=== PATIENT | female | born 1970 | race Caucasian/White ===

== ENCOUNTER 2020-06-17 14:13 | Outpatient (REF) | payer MEDICAID, SELFPAY ==
--- NOTE | ~2020-06-17 | MM_ITS ---
EXAMINATION: MM SCREENING DIGITAL BREAST TOMOSYNTHESIS, BILATERAL CLINICAL INFORMATION: Screening. Asymptomatic. The lifetime risk of breast cancer based on the Tyrer-Cuzick Model is 6%. COMPARISON: Mammography: 06/12/2019, 06/06/2018, 07/31/2016, 07/23/2016 TECHNIQUE: Digital breast tomosynthesis is performed in both the craniocaudal and mediolateral oblique views along with computer-aided detection (CAD). Synthesized 2D images are generated from the tomosynthesis. Additional left CC view is provided. FINDINGS: There are scattered areas of fibroglandular density (ACR BI-RADS breast composition Category b). There are no significant masses, abnormal calcifications, or other abnormalities. Parenchymal pattern is similar to prior exams. There is no developing density. The axilla and skin contours are unremarkable. MM/MM tomosynthesis screening BI IMPRESSION: No mammographic evidence of malignancy. ASSESSMENT: BI-RADS 1: Negative RECOMMENDATION: Routine annual mammography screening. This patient's information was entered into a reminder system with a target due date for their next mammogram.
== END 2020-06-17 14:14 | disposition home or self-care (01) ==
LOC: HO.MAMMO 14:13
PROVIDERS: PCP Internal Medicine; Visit Provider Internal Medicine
DX: Z12.31 Encounter for screening mammogram for malignant neoplasm of breast (principal)
CPT/HCPCS: 77063; 77067

== ENCOUNTER 2020-11-18 15:52 | Emergency (ER) | payer MEDICAID, SELFPAY ==
--- NOTE | ~2020-11-18 | US_ITS ---
EXAMINATION:US pelvic and transvaginal CLINICAL INFORMATION: Reason for Exam Heavy vaginal bleeding. Suprapubic/bilateral lower abd pain COMPARISON: No priors available. LMP: Lower abdominal pain FINDINGS: UTERUS: The uterus is anteverted. Size: 10 x 4.2 x 6.7 cm. Uterine mass: There is no uterine mass. Cervix: There are nabothian cysts otherwise Grossly unremarkable. Endometrium: No ultrasound evidence of endometrial lesion. endometrial thickness measures 1.1 cm ADNEXA: Normal Right ovary: Normal in size. Left ovary: Normal in size. Doppler exam: Normal Doppler flow identified in both ovaries. FREE FLUID: Trace amount of free fluid. OTHER FINDINGS: None US/US pelvic and transvaginal IMPRESSION: No ultrasound explanation for patient's symptoms.
[2020-11-18 16:22] VITALS: BP 140/51; PULSE 76; RESP 16; TEMP 36.4; O2SAT 99; BMI 39.4
[2020-11-18 18:00] VITALS: BP 108/61; PULSE 74; RESP 16; O2SAT 100
[2020-11-18 18:11] LABS: MANUAL DIFF FLAG NO
[2020-11-18 18:13] LABS: Basophils Absolute Auto 0.1 X10*3/uL (0.0-0.2); Basophils Percent Auto 0.7 % (0-2); Eosinophils Absolute Auto 0.2 X10*3/uL (0.0-0.4); Eosinophils Percent Auto 1.8 % (0-4); Hematocrit 36.1 % (37-47); Hemoglobin 11.7 g/dl (12.0-16.0); Imm Gran Abs Auto 0.05 X10*3/uL (0.00-0.03); Imm Gran Pct Auto 0.5 % (0.0-0.4); Lymphocytes Absolute Auto 3.4 X10*3/uL (1.2-4.9); Lymphocytes Percent Auto 37.2 % (20-40); Mean Corpuscular HGB Conc 32.4 g/dl (31.0-35.0); Mean Corpuscular Volume 95.5 fL (80-98); Monocytes Absolute Auto 0.6 X10*3/uL (0.1-1.2); Monocytes Percent Auto 6.5 % (2-11); Neutrophils Absolute Auto 4.9 X10*3/uL (2.0-8.3); Neutrophils Percent Auto 53.3 % (45-73); Platelet Count 277 X10*3/uL (160-400); Red Blood Count 3.78 X10*6/uL (4.20-5.50); Red Cell Distribution Width 13.9 % (11.0-16.0); White Blood Count 9.1 X10*3/uL (4.8-10.8)
[2020-11-18 18:20] LABS: Prothrombin Time 11.8 SEC (9.9-13.0)
[2020-11-18 18:23] LABS: Partial Thromboplastin Time 36.3 SEC (24.1-38.0)
--- NOTE | 2020-11-18 18:42 | ED.GENADULT ---
HPI - General Adult General Chief complaint: Vaginal Bleeding Stated complaint: Vaginal bleeding Time Seen by Provider: 11/18/20 17:49 Source: patient Mode of arrival: ambulatory History of Present Illness HPI narrative: 50-year-old female with a past medical history of anemia presenting to the ED complaining of lower/suprapubic abdominal pain and heavy vaginal bleeding x2 days. Reports bleeding is dark red with clots soaking multiple pads. Admits to similar symptoms in the past, had daily menstrual bleeding for 2 months ending in September. Denies taking anticoagulation. Denies fever, chills, CP/SOB, lightheadedness/dizziness, dysuria, vaginal discharge Related Data Allergies Allergy/AdvReac Type Severity Reaction Status Date / Time No Known Allergies Allergy Verified 11/18/20 16:30 [No Known Allergies*] Review of Systems Review of Systems: Constitutional: No Fever, No Chills, No Fatigue, No Malaise Cardiovascular: No Chest Pain, No SOB, No Edema, No Palpitations Respiratory: No Cough, No Dyspnea Gastrointestinal: No Nausea, No Vomiting, No Diarrhea, No Abdominal pain, No Hematochezia, No Melena Genitourinary: +vaginal bleeding, No Dysuria, No Hematuria, No vaginal discharge Musculoskeletal: No joint pain, No Myalgias, No Joint Swelling Skin: No Skin Lesions, No rash Neuro: No Weakness, No Numbness, No Paresthesias, No Dizziness/lightheadedness Yes all other systems are reviewed and are negative [facility] Past Medical History Attestation statement: The following information was validated with the patient. Medical History (Updated 11/18/20 @ 22:30 by SAE Drew) Anemia Social History Social History Advance Directives: Yes Advance Directives Information Provided: Yes Advance Directives on File: No Patient : No Physical Exam Vital Signs: Vital Signs: Last Vital Signs Temp 97.5 F 11/18/20 16:22 Pulse 74 11/18/20 20:00 Resp 16 11/18/20 20:00 BP 118/72 11/18/20 20:00 Pulse Ox 100 11/18/20 20:00 Body Mass Index 39.4 Const: General: cooperative and no acute distress Orientation/consciousness: patient oriented x3 Limitations: no limitations HENMT: Head: Yes normal to inspection Ears: hearing grossly normal bilaterally General nose exam: Normal external nose present Face and sinus: Yes normal facial exam Eyes: General: appearance normal, both eyes and all related structures EOM: EOMs intact bilaterally Neck: Neck: Yes normal visual inspection and Yes no meningeal signs Resp: Effort & Inspection: normal respiratory effort Auscultation: clear to auscultation bilaterally Cardio: Rate: regular rate Heart sounds: S1 normal heart sound present and S2 normal heart sound present GI: Inspection: Yes normal to inspection Palpation (GI): Soft to palpation, Tenderness to palpation present (GI) (Suprapubic/lower abdominal), no guarding and not rigid : General: Yes no CVA tenderness Speculum Exam - Vagina: vaginal bleeding (via the Os with clots) Speculum Exam - Cervix: nontender Bimanual exam- vagina & uterus: No Cervical tenderness present Bimanual Exam- Adnexa, other: no masses and tender on the right OB/external & speculum: vaginal bleeding (via the Os with clots); No vaginal discharge Back/Spine/Pelvis: Back: no CVA tenderness Skin: Rashes: no rashes Wounds: no wounds Neuro: General: patient oriented x3, tone normal, moves all extremities and no meningeal signs Gait exam (Neuro): Normal gait present Extrem: General: Yes normal to inspection Course Course Course Narrative: -no leukocytosis H&H 11.7/36 slightly lower than recent priors but has been lower in the past, coags WNL, labs otherwise unremarkable US pelvic and transvaginal IMPRESSION: No ultrasound explanation for patient's symptoms. -1028--repeat H&H stable, results discussed with patient including worrisome signs and symptoms and strict return precautions, patient recommended follow-up OBGYN/call on Saturday, she verbalized understanding feel safe for discharge home Medical Decision Making MDM Narrative Medical decision making narrative: 50-year-old female with a past medical history of anemia presenting to the ED complaining of lower/suprapubic abdominal pain and heavy vaginal bleeding x2 days. On exam VSS, NAD/appearing, abdomen soft with lower/suprapubic TTP. On pelvic exam moderate amount of vaginal bleeding noted with clots via arts, cleared with Q-tips, right adnexal tenderness, no CMT. Concern for DUB vs anemia vs ovarian cyst. Lower concern for torsion. Lower concern for diverticulitis/appendicitis or UTI/pyelo Plan: Labs, UA, pelvic ultrasound Lab Data Result diagrams: 11/18/20 21:49 11/18/20 18:05 Labs: Lab Results 11/18/20 11/18/20 11/18/20 Range/Units 18:05 18:05 18:06 WBC 9.1 (4.8-10.8) X10*3/uL RBC 3.78 L (4.20-5.50) X10*6/uL Hgb 11.7 L (12.0-16.0) g/dl Hct 36.1 L (37-47) % MCV 95.5 (80-98) fL MCH 31.0 (27.0-33.0) pg MCHC 32.4 (31.0-35.0) g/dl RDW 13.9 (11.0-16.0) % Plt Count 277 (160-400) X10*3/uL MPV 10.0 (9.4-12.3) fL Immature Gran % (Auto) 0.5 H (0.0-0.4) % Neut % (Auto) 53.3 (45-73) % Lymph % (Auto) 37.2 (20-40) % Kimball % (Auto) 6.5 (2-11) % Eos % (Auto) 1.8 (0-4) % Baso % (Auto) 0.7 (0-2) % Lymph # (Auto) 3.4 (1.2-4.9) X10*3/uL Kimball # (Auto) 0.6 (0.1-1.2) X10*3/uL Eos # (Auto) 0.2 (0.0-0.4) X10*3/uL Baso # (Auto) 0.1 (0.0-0.2) X10*3/uL Abs Immat Gran (auto) 0.05 H (0.00-0.03) X10*3/uL Absolute Neuts (auto) 4.9 (2.0-8.3) X10*3/uL Absolute Nucleated RBC 0.000 (0.0-0.012) X10*3/uL Nucleated RBC % (auto) 0.0 (0.0-0.2) /100WBC PT 11.8 (9.9-13.0) SEC INR 1.0 (0.9-1.1) APTT 36.3 (24.1-38.0) SEC Sodium 142 (135-145) mmol/L Potassium 3.9 (3.3-5.1) mmol/L Chloride 110 H (96-108) mmol/L Carbon Dioxide 23 (22-29) mmol/L Anion Gap 13 (12-20) BUN 14 (9-16) mg/dL Creatinine 1.02 (0.5-1.4) mg/dL Estim Creat Clear Calc 77.6 Estimated GFR 57 Random Glucose 89 (60-115) mg/dL Calcium 8.7 (8.4-10.2) mg/dL Magnesium 2.0 (1.6-2.6) mg/dL Total Bilirubin 0.2 (0.0-1.0) mg/dL Direct Bilirubin < 0.2 (0.0-0.5) mg/dL AST 14 (5-31) U/L ALT 12 (0-31) U/L Alkaline Phosphatase 85 (39-117) U/L Total Protein 7.0 (6.5-8.0) g/dL Albumin 3.8 (3.5-5.0) g/dL Lipase 51 (8-78) U/L 11/18/20 Range/Units 21:49 WBC 10.6 (4.8-10.8) X10*3/uL RBC 3.91 L (4.20-5.50) X10*6/uL Hgb 12.1 (12.0-16.0) g/dl Hct 37.3 (37-47) % MCV 95.4 (80-98) fL MCH 30.9 (27.0-33.0) pg MCHC 32.4 (31.0-35.0) g/dl RDW 13.7 (11.0-16.0) % Plt Count 294 (160-400) X10*3/uL MPV 10.1 (9.4-12.3) fL Immature Gran % (Auto) 0.6 H (0.0-0.4) % Neut % (Auto) 48.2 (45-73) % Lymph % (Auto) 43.2 H (20-40) % Kimball % (Auto) 5.6 (2-11) % Eos % (Auto) 1.6 (0-4) % Baso % (Auto) 0.8 (0-2) % Lymph # (Auto) 4.6 (1.2-4.9) X10*3/uL Kimball # (Auto) 0.6 (0.1-1.2) X10*3/uL Eos # (Auto) 0.2 (0.0-0.4) X10*3/uL Baso # (Auto) 0.1 (0.0-0.2) X10*3/uL Abs Immat Gran (auto) 0.06 H (0.00-0.03) X10*3/uL Absolute Neuts (auto) 5.1 (2.0-8.3) X10*3/uL Absolute Nucleated RBC 0.000 (0.0-0.012) X10*3/uL Nucleated RBC % (auto) 0.0 (0.0-0.2) /100WBC PT (9.9-13.0) SEC INR (0.9-1.1) APTT (24.1-38.0) SEC Sodium (135-145) mmol/L Potassium (3.3-5.1) mmol/L Chloride (96-108) mmol/L Carbon Dioxide (22-29) mmol/L Anion Gap (12-20) BUN (9-16) mg/dL Creatinine (0.5-1.4) mg/dL Estim Creat Clear Calc Estimated GFR Random Glucose (60-115) mg/dL Calcium (8.4-10.2) mg/dL Magnesium (1.6-2.6) mg/dL Total Bilirubin (0.0-1.0) mg/dL Direct Bilirubin (0.0-0.5) mg/dL AST (5-31) U/L ALT (0-31) U/L Alkaline Phosphatase (39-117) U/L Total Protein (6.5-8.0) g/dL Albumin (3.5-5.0) g/dL Lipase (8-78) U/L Discharge Plan Discharge Clinical Impression: Vaginal bleeding Patient Disposition: Home, Self-Care Instructions: Dysfunctional Uterine Bleeding (ED) Additional Instructions: Your blood work was reassuring Your ultrasound was unremarkable You need to follow-up with an OBGYN If your symptoms persist or worsen, her bleeding becomes more severe, he developed lightheadedness or dizziness, chest pain, shortness breath, vaginal discharge, or constant worsening abdominal plain return to the ED immediately Tu an?lisis de eunice fue reconfortante Tu ecograf?a no tuvo nada especial Necesita hacer un seguimiento con un ginecoobstetra Si dalton s?ntomas persisten o empeoran, subramanian sangrado se vuelve m?s ruba, ?l desarroll? aturdimiento o mareos, dolor en el pecho, dificultad para respirar, flujo vaginal o dolor abdominal julio que empeora regrese al servicio de urgencias de inmediato. Referrals: Douglas Ellison MD [Physician] - 3 days Print Language: Montserratian
[2020-11-18 18:46] LABS: Alanine Aminotransferase 12 U/L (0-31); Albumin Level 3.8 g/dL (3.5-5.0); Alkaline Phosphatase 85 U/L (39-117); Anion Gap 13 (12-20); Aspartate Amino Transferase 14 U/L (5-31); Bilirubin Direct < 0.2 mg/dL (0.0-0.5); Bilirubin Total 0.2 mg/dL (0.0-1.0); Blood Urea Nitrogen 14 mg/dL (9-16); Calcium 8.7 mg/dL (8.4-10.2); Carbon Dioxide 23 mmol/L (22-29); Chloride 110 mmol/L (96-108); Creatinine Clr Calc Pharmacy 77.6; Estimated Glomerular Filt Rate 57; Glucose Random 89 mg/dL (60-115); Potassium 3.9 mmol/L (3.3-5.1); Sodium 142 mmol/L (135-145)
[2020-11-18] MEDS: 0.9 % Sodium Chloride 1,000 ML 999 ML IVCONT (18:53)
[2020-11-18 18:55] LABS: Lipase 51 U/L (8-78)
--- NOTE | 2020-11-18 19:48 | PC.NURSE ---
THIS PCT SET UP AND ASSIST SAE GOMEZ WITH PATIENT PELVIC EXAM .
[2020-11-18 20:00] VITALS: BP 118/72; PULSE 74; RESP 16; O2SAT 100
[2020-11-18] MEDS: Acetaminophen 325 MG TABLET 650 MG PO (20:20)
[2020-11-18 21:53] LABS: MANUAL DIFF FLAG NO
[2020-11-18 21:54] LABS: Basophils Absolute Auto 0.1 X10*3/uL (0.0-0.2); Basophils Percent Auto 0.8 % (0-2); Eosinophils Absolute Auto 0.2 X10*3/uL (0.0-0.4); Eosinophils Percent Auto 1.6 % (0-4); Hematocrit 37.3 % (37-47); Hemoglobin 12.1 g/dl (12.0-16.0); Imm Gran Abs Auto 0.06 X10*3/uL (0.00-0.03); Imm Gran Pct Auto 0.6 % (0.0-0.4); Lymphocytes Absolute Auto 4.6 X10*3/uL (1.2-4.9); Lymphocytes Percent Auto 43.2 % (20-40); Mean Corpuscular HGB Conc 32.4 g/dl (31.0-35.0); Mean Corpuscular Hemoglobin 30.9 pg (27.0-33.0); Mean Corpuscular Volume 95.4 fL (80-98); Mean Platelet Volume 10.1 fL (9.4-12.3); Monocytes Absolute Auto 0.6 X10*3/uL (0.1-1.2); Monocytes Percent Auto 5.6 % (2-11); Neutrophils Absolute Auto 5.1 X10*3/uL (2.0-8.3); Neutrophils Percent Auto 48.2 % (45-73); Platelet Count 294 X10*3/uL (160-400); Red Blood Count 3.91 X10*6/uL (4.20-5.50); Red Cell Distribution Width 13.7 % (11.0-16.0); White Blood Count 10.6 X10*3/uL (4.8-10.8)
== END 2020-11-18 22:58 | disposition home or self-care (01) ==
PROVIDERS: Physician Assistant; Emergency Provider Internal Medicine; PCP Internal Medicine
DX: N93.9 Abnormal uterine and vaginal bleeding, unspecified (principal)
CPT/HCPCS: 36415; 76830; 76856; 80048; 80076; 83690; 83735; 85025; 85610; 85730; 99284

== ENCOUNTER 2020-12-01 15:06 | Outpatient (REF) | payer MEDICAID, SELFPAY ==
[2020-12-02 11:47] LABS: CT PCR NOT DETECTED (Not Detect.); NG PCR NOT DETECTED (Not Detect.)
[2020-12-06 21:15] LABS: HPV mRNA E6/E7 rflx Not Detected (Not Detected)
== END 2020-12-01 15:07 | disposition home or self-care (01) ==
LOC: HO.LAB 15:06
PROVIDERS: PCP Internal Medicine; Visit Provider Obstetrics & Gynecology
DX: Z01.411 Encounter for gynecological examination (general) (routine) with abnormal findings (principal); Z11.51 Encounter for screening for human papillomavirus (HPV); Z11.3 Encounter for screening for infections with a predominantly sexual mode of transmission; N92.0 Excessive and frequent menstruation with regular cycle
CPT/HCPCS: 87491; 87591; 87624; 88142; 99202

== ENCOUNTER 2020-12-19 14:36 | Outpatient (REF) | payer MEDICAID, SELFPAY | END 2020-12-19 14:37 | disposition home or self-care (01) | LOC: HO.LAB 14:36 | PROVIDERS: Visit Provider Obstetrics & Gynecology | DX: R87.610 Atypical squamous cells of undetermined significance on cytologic smear of cervix (ASC-US) (principal); N92.0 Excessive and frequent menstruation with regular cycle | CPT/HCPCS: 57454; 88305; 99212 ==

== ENCOUNTER 2020-12-30 10:48 | Day surgery (SDC) | payer MEDICAID, SELFPAY ==
--- NOTE | 2020-12-29 08:50 | HO.ANESPROP2 ---
Documented by User: Ella Spears NP 12/29/20 08:51 HPI - Anesthesia Eval Consult details Narrative: 50yo F for D&C Hysteroscopy, Poss Polypectomy, Poss Myomectomy PMFSH Active Problems Active Problems: All Active Problems (Updated 12/19/20 @ 14:57 by Douglas Ellison MD) ASCUS of cervix with negative high risk HPV (Acute) Menorrhagia (Acute) Past Medical History Medical History Anemia Epilepsia Hypothyroid Well woman exam Surgical History Surgical History Hx of section Tubal ligation status Social History Social History Alcohol intake: never Patient Tobacco Use Status: Never used Tobacco Second Hand Smoke Exposure: No Use of substances other than those prescribed or required for medical reasons: No Are you DNR?: No Advance Directives: No Advance Directives Information Provided: Yes Advance Directives on File: No Meds Allergies Allergy/AdvReac Type Severity Reaction Status Date / Time No Known Allergies Allergy Verified 12/01/20 15:20 [No Known Allergies*] Home Medications Medication Instructions Recorded Confirmed Last Taken Type ferrous sulfate 325 mg (65 mg 325 mg PO DAILY 12/01/20 Unknown History iron) tablet (Iron (ferrous sulfate)) levothyroxine 50 mcg capsule 50 mcg PO DAILY 12/01/20 Unknown History omeprazole magnesium 10 mg oral 20 mg PO DAILY 12/01/20 Unknown History suspension,delayed release (Prilosec) Exam Exam Date and Time: December 29, 2020 0850 Pertinent Lab Results Pertinent Lab Results: Laboratory Tests 11/18/20 11/18/20 18:05 21:49 WBC 10.6 Hgb 12.1 Hct 37.3 Plt Count 294 Sodium 142 Potassium 3.9 Chloride 110 H Carbon Dioxide 23 BUN 14 Creatinine 1.02 Assessment and Plan Assessment Anesthesia Assessment: Chart Reviewed Documented by User: Aliya Hudson MD 12/30/20 11:24 PMFSH Past Medical History Medical History (Reviewed 12/30/20 @ 11: by Aliya Hudson MD) Anemia Epilepsia Hypothyroid Well woman exam Family History Family history of problems with anesthesia: No Surgical History Surgical History (Reviewed 12/30/20 @ 11: by Aliya Hudson MD) Hx of section Tubal ligation status History of Problems with Anesthesia: No Social History Social History (Reviewed 12/30/20 @ 11: by Aliya Hudson MD) Alcohol intake: never Patient Tobacco Use Status: Never used Tobacco Second Hand Smoke Exposure: No Use of substances other than those prescribed or required for medical reasons: No Are you DNR?: No Advance Directives: No Advance Directives Information Provided: Yes Advance Directives on File: No Meds Allergies Allergy/AdvReac Type Severity Reaction Status Date / Time No Known Allergies Allergy Verified 12/01/20 15:20 [No Known Allergies*] Home Medications Medication Instructions Recorded Confirmed Last Taken Type ferrous sulfate 325 mg (65 mg 325 mg PO DAILY 12/01/20 Unknown History iron) tablet (Iron (ferrous sulfate)) levothyroxine 50 mcg capsule 50 mcg PO DAILY 12/01/20 Unknown History omeprazole magnesium 10 mg oral 20 mg PO DAILY 12/01/20 Unknown History suspension,delayed release (Prilosec) Exam Airway Mallampati Class: II TM Dist: >3cm Neck ROM: Full Assessment and Plan Assessment Anesthesia Assessment: Anesthesia Plan Discussed Final Anesthetic Review Family History of Problems with Anesthesia: No History of Problems with Anesthesia: No NPO: Yes ASA Class: III Final Preanesthetic Review: No Changes in Pt Med Stat, Meds/Allgs Chart Reviewed, Consent Obtained/Reviewed and Anes Risks/Benef Reviewed Patient Risk: Low Procedure Risk: Low Assessment/Block/Sedation in SS: Assess/Block/Sedation-SS Anesthetic Plan Anesthetic Plan: MAC: Disposition: Standard PACU
[2020-12-30 11:14] VITALS: BP 115/84; PULSE 87; RESP 16; TEMP 36.2; O2SAT 98; BMI 41.8
[2020-12-30 11:19] LABS: UPreg QC Valid YES; Urine Pregnancy NEGATIVE (NEGATIVE)
[2020-12-30] MEDS: Lactated Ringers 1,000 ML 100 ML IVCONT (11:22)
--- NOTE | 2020-12-30 11:24 | MHC.SHP ---
Pre-Procedural Eval Section A Date of Service: 12/30/20 The patient is an INPATIENT: No Changes since office visit: No Cold of Flu in the past 2 weeks, No New Medical Problems, No Changes in Medication and No Patient answered all questions The History & Physical has been completed within 30 days and I have reviewed it.: Yes Section B Chief Complaint: Menorrhagia Allergies: Allergies Allergy/AdvReac Type Severity Reaction Status Date / Time No Known Allergies Allergy Verified 12/01/20 15:20 [No Known Allergies*] Plan Diagnosis/Plan: Unchanged I have reviewed the history and physical and performed a pertinent physical examination on my patient. No changes have occurred unless specified.
--- NOTE | 2020-12-30 14:34 | PM.OP ---
Brief Operative Note Date of Service: 12/30/20 Pre-op diagnosis: Menorrhagia Post-op diagnosis: same Procedure: Hysteroscopy D&C Surgeon: Douglas Ellison MD Anesthesia: MAC Was an Associate Professor Of Economics used for this Procedure?: No Estimated blood loss (mL): 0 Pathology: other (Endometrial Scrapping) Condition: stable Disposition: PACU
--- NOTE | 2020-12-30 14:35 | W.PM.OPN ---
Operative Note Operative Note Date of Service: 12/30/20 Narrative: Preop Diagnosis: Menometrorrhagia Operation: Diagnostic Hysteroscopy, Dilataion & Curettage Post Op Diagnosis: normal endometrial and endocervical cavity no evidence of pathology QBL: Minimal Anesthesia: MAC Surgeon: Douglas Ellison MD [place] Consultant: None Complication: None Pathology: Endometrial Scrapings Procedure: The patient was put in the dorsal lithotomy position, scrubbed, and draped in the usual manner. A sterile speculum was inserted in the patient's vagina. The anterior lip of the cervix was grasped with a single tooth tenaculum. The cervix was dilated up to 5 mm, then the scope was inserted in the patient's uterus. Inspection revealed normal endocervical & endometrial cavity with no evidence of pathology. The scope was taken out of the uterine cavity , then sharp curetting was carried on with no complications. At the end of the procedure, all instruments were taken out of the patient uterine and vaginal cavity. The single tooth tenaculum was removed and homeostasis was assured using pressure. The patient tolerated the procedure well and was transferred to the PACU in a stable condition.
[2020-12-30 14:42] VITALS: BP 114/86; PULSE 92; RESP 16; TEMP 36.4; O2SAT 98
[2020-12-30 14:47] VITALS: BP 128/80; PULSE 83; RESP 16; O2SAT 97
[2020-12-30 14:52] VITALS: BP 115/65; PULSE 75; RESP 16; O2SAT 98
[2020-12-30 14:57] VITALS: BP 124/75; PULSE 80; RESP 16; TEMP 36.4; O2SAT 98
--- NOTE | 2020-12-30 15:31 | HO.POSTANES ---
Post Anesthesia Evaluation Post Anesthesia Evaluation Vital Signs: Vital Signs Temp Pulse Resp BP Pulse Ox 12/30/20 14:57 97.6 F 80 16 124/75 98 12/30/20 14:52 75 16 115/65 98 12/30/20 14:47 83 16 128/80 97 12/30/20 14:42 97.6 F 92 16 114/86 98 12/30/20 11:14 97.1 F 87 16 115/84 98 Anesthesia: Monitored Mental Status: Awake Pain Control: Satisfactory Nausea/Vomiting: None Hydration: Adequate Anesthesia-Related Issues: No Anes. Related Issues
== END 2020-12-30 15:30 | disposition home or self-care (01) ==
PROVIDERS: Visit Provider Obstetrics & Gynecology
PROC: 0UDB8ZZ Extraction of Endometrium, Via Natural or Artificial Opening Endoscopic (ICD-10-PCS; CPT 58558; principal; 2020-12-30 13:00)
DX: N92.1 Excessive and frequent menstruation with irregular cycle (principal); D64.9 Anemia, unspecified; G40.909 Epilepsy, unspecified, not intractable, without status epilepticus; E03.9 Hypothyroidism, unspecified; Z98.51 Tubal ligation status; Z79.899 Other long term (current) drug therapy
CPT/HCPCS: 58558; 81025; 88305; J1100; J2250; J2405; J3010

== ENCOUNTER 2021-02-02 16:26 | Outpatient (REF) | payer MEDICAID, SELFPAY ==
[2021-02-02 17:45] LABS: HCG Quantitative < 2 mIU/mL
[2021-02-04 18:21] LABS: Follicle Stimulating Hormone 40.1 mIU/mL; Lutenizing Hormone 35.3 mIU/mL
== END 2021-02-02 16:27 | disposition home or self-care (01) ==
LOC: HO.LAB 16:26
PROVIDERS: Visit Provider Obstetrics & Gynecology
DX: N92.0 Excessive and frequent menstruation with regular cycle (principal)
CPT/HCPCS: 36415; 83001; 83002; 84443; 84702

== ENCOUNTER → 2021-02-07 12:30 | Outpatient (BNVA) | payer MEDICAID, SELFPAY | PROVIDERS: Visit Provider Obstetrics & Gynecology | DX: N92.0 Excessive and frequent menstruation with regular cycle (principal) ==

== ENCOUNTER 2021-08-22 16:54 | Emergency (ER) | payer MEDICAID, SELFPAY ==
--- NOTE | ~2021-08-22 | XR_ITS ---
EXAMINATION: XR CHEST CLINICAL INFORMATION: Chest pain COMPARISON: Chest x-ray 10/25/2017 TECHNIQUE: Frontal view of the chest was obtained. 5:52 PM FINDINGS: Lungs are clear. No pulmonary vascular congestion. There is no pleural effusion. The heart size is normal. The cardiac and mediastinal contours are normal. There are calcifications of the thoracic aorta. There are multilevel degenerative changes of dorsal spine. XR/XR chest 1V IMPRESSION: Unremarkable examination.
--- NOTE | 2021-08-22 16:58 | ECG_ITS ---
Test Reason : CHEST PAIN Blood Pressure : / mmHG Vent. Rate : 107 BPM Atrial Rate : 107 BPM P-R Int : 122 ms QRS Dur : 086 ms QT Int : 362 ms P-R-T Axes : 046 016 011 degrees QTc Int : 483 ms Sinus tachycardia Nonspecific ST abnormality Abnormal ECG No previous ECGs available Referred By: Generic ED Physician Electronically Signed By:Reji Pereira
[2021-08-22 17:20] LABS: Basophils Absolute Auto 0.1 X10*3/uL (0.0-0.2); Basophils Percent Auto 0.8 % (0-2); Eosinophils Absolute Auto 0.2 X10*3/uL (0.0-0.4); Eosinophils Percent Auto 1.1 % (0-4); Hemoglobin 12.2 g/dl (12.0-16.0); Imm Gran Abs Auto 0.08 X10*3/uL (0.00-0.03); Imm Gran Pct Auto 0.6 % (0.0-0.4); Lymphocytes Percent Auto 46.7 % (20-40); MANUAL DIFF FLAG SCAN; Mean Corpuscular HGB Conc 32.1 g/dl (31.0-35.0); Mean Corpuscular Volume 96.4 fL (80.0-98.0); Monocytes Absolute Auto 0.8 X10*3/uL (0.1-1.2); Monocytes Percent Auto 6.1 % (2-11); Neutrophils Percent Auto 44.7 % (45-73); Platelet Count 360 X10*3/uL (160-400); Red Blood Count 3.94 X10*6/uL (4.20-5.50); Red Cell Distribution Width 13.4 % (11.0-16.0); SCAN SMEAR FLAG 1; White Blood Count 13.3 X10*3/uL (4.8-10.8)
[2021-08-22 17:21] VITALS: BP 121/84; PULSE 80; RESP 19; TEMP 36.3; O2SAT 98; BMI 44.2
[2021-08-22 17:27] LABS: Lymphocytes Absolute Auto 6.2 X10*3/uL (1.2-4.9)
[2021-08-22 17:31] LABS: Anion Gap 13 (12-20); Blood Urea Nitrogen 15 mg/dL (9-16); Calcium 9.3 mg/dL (8.4-10.2); Carbon Dioxide 24 mmol/L (22-29); Chloride 106 mmol/L (96-108); Creatinine Clr Calc Pharmacy 69.1; Estimated Glomerular Filt Rate 48; Glucose Random 124 mg/dL (60-115); Potassium 4.1 mmol/L (3.3-5.1); Sodium 139 mmol/L (135-145)
[2021-08-22 17:38] LABS: Troponin-I High Sensitivity < 3.5 ng/L (<3.5-17.0)
[2021-08-22 17:55] LABS: SLIDE REVIEW VERIFIED
[2021-08-22 22:24] VITALS: BP 135/77; PULSE 89; RESP 16; TEMP 36.4; O2SAT 98
[2021-08-23] MEDS: Meclizine HCl 25 MG TABLET 50 MG PO (01:09)
--- NOTE | 2021-08-23 01:11 | PC.NURSE ---
pt a&o, no sob or chest pain at this time. The provider into see patient and review discharge instructions.
--- NOTE | 2021-08-23 01:15 | ED_ITS ---
HPI - Dizziness General Chief Complaint: Chest Pain Stated Complaint: dizziness/chest pains/anxiety Time Seen by Provider: 08/23/21 00:46 Source: patient Mode of arrival: ambulatory Limitations: no limitations History of Present Illness HPI Narrative: Patient came here with sudden onset of vertigo feeling started afternoon with nausea and vomiting after vomiting she was feeling mid chest discomfort patient was so dizzy was unable to ambulate after waiting for some time patient is feeling much better now denies any ringing in the ear no headache no fever no chills Related Data Home Medications Medication Instructions Recorded Confirmed ferrous sulfate 325 mg (65 mg 325 mg PO DAILY 12/01/20 iron) tablet (Iron (ferrous sulfate)) levothyroxine 50 mcg capsule 50 mcg PO DAILY 12/01/20 omeprazole magnesium 10 mg oral 20 mg PO DAILY 12/01/20 suspension,delayed release (Prilosec) Previous Rx's Medication Instructions Recorded meclizine 25 mg tablet 25 mg PO QID PRN #20 tab 08/23/21 Allergies Allergy/AdvReac Type Severity Reaction Status Date / Time No Known Allergies Allergy Verified 08/22/21 17:30 [No Known Allergies*] Review of Systems Review of Systems: Yes all other systems are reviewed and are negative PMFSH Past Medical History Medical History Anemia Epilepsia Hypothyroid Well woman exam Surgical History Hx of section Tubal ligation status Social History Social History Alcohol intake: never Patient Tobacco Use Status: Never used Tobacco Second Hand Smoke Exposure: No Use of substances other than those prescribed or required for medical reasons: No Advance Directives: No Physical Exam Vital Signs: Vital Signs: Last Vital Signs Temp 97.6 F 08/22/21 22:24 Pulse 80 08/23/21 01:29 Resp 16 08/23/21 01:29 BP 135/81 08/23/21 01:29 Pulse Ox 100 08/23/21 01:29 BMI result Body Mass Index 44.2 Appearance: Alert. Oriented X3. No acute distress. Eyes: PERRLA, No Nystagmus ENT: Pharynx normal. Oral Mucosa moist Neck: Normal inspection. Neck supple. CVS: Normal heart rate and rhythm. Pulses normal. Respiratory: No respiratory distress. Equal air entry bilateral, no wheezing/rales/rhonchi Abdomen: Soft and nontender. Bowel sounds are present, no mass palpable, no CVA tenderness Skin: Skin warm and dry. Normal skin color. Normal skin turgor. Extremities: No lower extremity edema. No calf tenderness Neuro: Oriented X 3. No motor deficit. No sensory deficit.No cerebellar signs , cranial nerves II-XII intact MDM - Dizziness MDM Narrative Medical decision making narrative: Patient likely has benign positional vertigo after waiting for some time patient vertigo has improved patient complaining of vertigo feeling by either either s karri of the head movement at this time patient ambulatory with mild vertiginous feeling will give her meclizine discharge patient home Lab Data Attestation: I reviewed the patient's lab results. Result diagrams: 08/22/21 17:10 08/22/21 17:10 Labs: Lab Results 08/22/21 08/22/21 08/22/21 Range/Units 17:10 17:10 17:10 WBC 13.3 H (4.8-10.8) X10*3/uL RBC 3.94 L (4.20-5.50) X10*6/uL Hgb 12.2 (12.0-16.0) g/dl Hct 38.0 (37.0-47.0) % MCV 96.4 (80.0-98.0) fL MCH 31.0 (27.0-33.0) pg MCHC 32.1 (31.0-35.0) g/dl RDW 13.4 (11.0-16.0) % Plt Count 360 (160-400) X10*3/uL MPV 10.0 (9.4-12.3) fL Immature Gran % (Auto) 0.6 H (0.0-0.4) % Neut % (Auto) 44.7 L (45-73) % Lymph % (Auto) 46.7 H (20-40) % Churchill % (Auto) 6.1 (2-11) % Eos % (Auto) 1.1 (0-4) % Baso % (Auto) 0.8 (0-2) % Lymph # (Auto) 6.2 H (1.2-4.9) X10*3/uL Churchill # (Auto) 0.8 (0.1-1.2) X10*3/uL Eos # (Auto) 0.2 (0.0-0.4) X10*3/uL Baso # (Auto) 0.1 (0.0-0.2) X10*3/uL Abs Immat Gran (auto) 0.08 H (0.00-0.03) X10*3/uL Absolute Neuts (auto) 6.0 (2.0-8.3) x10*3/uL Absolute Nucleated RBC 0.000 (0.0-0.012) X10*3/uL Nucleated RBC % (auto) 0.0 (0.0-0.2) /100WBC Smear Tech's Comments VERIFIED Sodium 139 (135-145) mmol/L Potassium 4.1 (3.3-5.1) mmol/L Chloride 106 (96-108) mmol/L Carbon Dioxide 24 (22-29) mmol/L Anion Gap 13 (12-20) BUN 15 (9-16) mg/dL Creatinine 1.18 (0.5-1.4) mg/dL Estim Creat Clear Calc 69.1 Estimated GFR 48 Random Glucose 124 H (60-115) mg/dL Calcium 9.3 D (8.4-10.2) mg/dL Troponin I High Sens < 3.5 (<3.5-17.0) ng/L ECG Data Attestation: I personally reviewed and interpreted this ECG as follows: Interpretation: Sinus tachycardia heart rate 107 beats per minute normal intervals normal axis no acute STT wave changes Discharge Plan Discharge Clinical Impression: Benign paroxysmal positional vertigo Patient Disposition: Home, Self-Care Instructions: Benign Paroxysmal Positional Vertigo (ED) Additional Instructions: Rest as advised Take medication for dizziness as prescribed Follow with PCP if not better [place] se recomienda [place] la medicaci?n para los mareos seg?n lo prescrito Siga con PCP si no mejor Prescriptions: New meclizine 25 mg tablet 25 mg PO QID PRN (Reason: dizziness) Qty: 20 0RF No Action ferrous sulfate [Iron (ferrous sulfate)] 325 mg (65 mg iron) tablet 325 mg PO DAILY 0RF levothyroxine 50 mcg capsule 50 mcg PO DAILY 0RF Prilosec 10 mg susp,delayed release for recon 20 mg PO DAILY 0RF Stand Alone Forms: Work/School Release Interventions: ED Discharge Assessment Last Done: 08/23/21 01:32 Discharge Date/Time: 08/23/21 01:34 Print Language: Mauritian
[2021-08-23 01:29] VITALS: BP 135/81; PULSE 80; RESP 16; O2SAT 100
== END 2021-08-23 01:34 | disposition home or self-care (01) ==
PROVIDERS: Emergency Provider Internal Medicine
DX: H81.13 Benign paroxysmal vertigo, bilateral (principal); R07.89 Other chest pain; F41.1 Generalized anxiety disorder; F43.0 Acute stress reaction; Z79.899 Other long term (current) drug therapy
CPT/HCPCS: 36415; 71045; 80048; 84484; 85025; 93005; 99283; 99285

== ENCOUNTER → 2021-12-20 13:55 | Outpatient (BNVA) | payer MEDICAID, SELFPAY | PROVIDERS: Visit Provider Nurse Practitioner Family | DX: Z12.11 Encounter for screening for malignant neoplasm of colon (principal); K21.9 Gastro-esophageal reflux disease without esophagitis; Z79.899 Other long term (current) drug therapy | CPT/HCPCS: 99202; 99212 ==

== ENCOUNTER 2022-01-05 07:45 | Day surgery (SDC) | payer MEDICAID, SELFPAY ==
[2022-01-01 11:42] VITALS: BMI 43.2
--- NOTE | 2022-01-05 09:08 | MHC.SHP ---
Pre-Procedural Eval Section A Date of Service: 01/05/22 The patient is an INPATIENT: No Changes since office visit: Yes Patient answered all questions; No Cold of Flu in the past 2 weeks, No New Medical Problems and No Changes in Medication The History & Physical has been completed within 30 days and I have reviewed it.: Yes Section B Chief Complaint: screening Allergies: Allergies Allergy/AdvReac Type Severity Reaction Status Date / Time No Known Allergies Allergy Verified 01/05/22 08:51 [No Known Allergies*] Plan I have reviewed the history and physical and performed a pertinent physical examination on my patient. No changes have occurred unless specified.
[2022-01-05 09:13] VITALS: BP 123/83; PULSE 70; RESP 17; TEMP 35.9; O2SAT 99
[2022-01-05] MEDS: Lactated Ringers 1,000 ML 100 ML IVCONT (09:14)
--- NOTE | 2022-01-05 09:31 | HO.ANESPROP2 ---
HPI - Anesthesia Eval Consult details Narrative: 51 yo female patient for Colonoscopy PMFSH Active Problems Active Problems: All Active Problems (Updated 01/05/22 @ 08:48 by Meggan Pang, RN) Menorrhagia (Acute) ASCUS of cervix with negative high risk HPV (Acute) Perimenopause (Acute) Increased BMI 43.3 Denies PAU Past Medical History Medical History Anemia Epilepsia GERD (gastroesophageal reflux disease) Hypothyroid Well woman exam Family History Family history of problems with anesthesia: No Surgical History Surgical History History of dilatation and curettage Hx of section Tubal ligation status History of Problems with Anesthesia: No Social History Social History Alcohol intake: never Patient Tobacco Use Status: Never used Tobacco Second Hand Smoke Exposure: No Use of substances other than those prescribed or required for medical reasons: No Are you DNR?: No Advance Directives: No Advance Directives Information Provided: Yes Meds Allergies Allergy/AdvReac Type Severity Reaction Status Date / Time No Known Allergies Allergy Verified 01/05/22 08:51 [No Known Allergies*] Active Medications: Current Medications Lactated Ringer's (Lr) 1,000 mls @ 100 mls/hr IVCONT .Q10H JAMAL Last Admin: 01/05/22 09:14 Dose: 100 mls/hr Home Medications Medication Instructions Recorded Confirmed Last Taken Type ferrous sulfate 325 mg (65 mg 325 mg PO DAILY 12/01/20 01/05/22 Unknown History iron) tablet (Iron (ferrous sulfate)) levothyroxine 50 mcg capsule 50 mcg PO DAILY 12/01/20 01/05/22 Unknown History omeprazole magnesium 10 mg oral 20 mg PO DAILY 12/01/20 01/05/22 Unknown History suspension,delayed release (Prilosec) Exam Exam Date and Time: January 05, [id number] Height,Weight and Vital Signs: Height 5 ft 4 in Weight 114.305 kg Last Vital Signs Temp 96.7 F L 01/05/22 09:13 Pulse 70 01/05/22 09:13 Resp 17 01/05/22 09:13 BP 123/83 01/05/22 09:13 Pulse Ox 99 01/05/22 09:13 O2 Del Method 01/05/22 09:13 Airway Mallampati Class: II TM Dist: >3cm Neck ROM: Full Loose/Missing/Broken Teeth: No (Patient denies loose or broken teeth) Heart: RRR Lungs: CTAB Assessment and Plan Final Anesthetic Review Family History of Problems with Anesthesia: No History of Problems with Anesthesia: No NPO: Yes ASA Class: III Final Preanesthetic Review: No Changes in Pt Med Stat, Meds/Allgs Chart Reviewed, Consent Obtained/Reviewed and Anes Risks/Benef Reviewed Patient Risk: Intermediate Procedure Risk: Low Assessment/Block/Sedation in SS: Assess/Block/Sedation-SS Anesthetic Plan Anesthetic Plan: MAC: Disposition: Standard PACU
--- NOTE | 2022-01-05 09:45 | P.OP_ITS ---
Operative Note Operative Note Date of Service: 01/05/22 Narrative: Pre-op diagnosis: colon cancer screening (1st colonoscopy) Post-op diagnosis:?other ( colon polyp, diverticulosis, hemorrhoids) Procedure: COLONOSCOPY TILL CECUM WITH? SNARE POLYPECTOMY Consent: Indications for the procedure and potential complications of bleeding, perforation, reaction to medications and missed diagnosis were discussed with the patient and informed consent was obtained. Instrument: Olympus PCF H 190 L variable stiffness pediatric colonoscope Monitoring: Vital signs and clinical assessment, intermittent blood pressure monitoring, continuous EKG monitoring, Pulse oximetry and Carbon Dioxide monitoring were done throughout the procedure. Colon withdrawl time was 21 minutes. Procedure: The patient was placed in the left lateral decubitis position and pre-procedure medications were administered. After a digital rectal examination of the ano-rectum, the video colonoscope was inserted into the rectum and advanced through the colon to the cecum. The colonoscope was slowly withdrawn in a retrograde panoramic fashion and the colon mucosa was carefully examined including a retroflexed view of the rectum. Findings and interventions are described below. Procedure Difficulty: Without difficulty Findings: Terminal Ileum: Not evaluated Cecum:? Normal Ascending Colon:? Normal Transverse Colon:? Normal Descending Colon:? Normal Sigmoid Colon:? A 12-15 mm sessile polyp removed with a hot snare. Moderate diverticulosis Rectum:? Normal Ano-rectum:? Moderate internal hemorrhoids Colon preparation:? Good? after copious irrigation Impression and Post Procedure Diagnosis: Colonoscopy Findings: One medium sized polyp removed Moderate diverticulosis seen in the sigmoid colon Moderate hemorrhoids on retroflexed exam. Plan: Await pathology results Patient has an appointment on 01/19/22 in the GI Clinic with ? Alina Restrepo FNP-KEL. Repeat Colonoscopy interval based on path results - in 3 years if polyps are adenomatous and 10 years if polyps are hyperplastic. Above findings were reviewed with the patient and colon polyps and diverticulosis handouts were given in the discharge area Surgeon: Perla Small MD Anesthesia:?MAC Was an Railroad Commissioner used for this Procedure?:?Yes Railroad Commissioner:?Daniela Donato Estimated blood loss (mL):?0 Pathology:?other (A. sigmoid polyp) Condition:?stable Disposition:?PACU
[2022-01-05 10:38] VITALS: BP 101/67; PULSE 80; RESP 16; TEMP 36.1; O2SAT 97
[2022-01-05 10:53] VITALS: BP 120/82; PULSE 77; RESP 18; O2SAT 99
[2022-01-05 11:08] VITALS: BP 125/83; PULSE 63; RESP 16; TEMP 36.2; O2SAT 99
== END 2022-01-05 11:32 | disposition home or self-care (01) ==
PROVIDERS: PCP Internal Medicine; Visit Provider Internal Medicine Gastroenterology
PROC: 0DJD8ZZ Inspection of Lower Intestinal Tract, Via Natural or Artificial Opening Endoscopic (ICD-10-PCS; CPT 45378; principal; 2022-01-05 10:00)
DX: Z12.11 Encounter for screening for malignant neoplasm of colon (principal); D12.5 Benign neoplasm of sigmoid colon; K57.30 Diverticulosis of large intestine without perforation or abscess without bleeding; K64.8 Other hemorrhoids; D64.9 Anemia, unspecified; G40.109 Localization-related (focal) (partial) symptomatic epilepsy and epileptic syndromes with simple partial seizures, not intractable, without status epilepticus; E03.9 Hypothyroidism, unspecified; K21.9 Gastro-esophageal reflux disease without esophagitis; Z79.899 Other long term (current) drug therapy
CPT/HCPCS: 45385; 88305

== ENCOUNTER → 2022-01-09 10:59 | Outpatient (BNVA) | payer MEDICAID, SELFPAY | PROVIDERS: PCP Internal Medicine; Visit Provider Orthopaedic Surgery | DX: M65.331 Trigger finger, right middle finger (principal) | CPT/HCPCS: 99202 ==

== ENCOUNTER 2022-04-26 10:29 | Day surgery (SDC) | payer MEDICAID, SELFPAY ==
[2022-04-26 10:01] VITALS: BMI 42.0
[2022-04-26 10:43] VITALS: BP 156/98; PULSE 83; RESP 20; TEMP 36.1; O2SAT 97
--- NOTE | 2022-04-26 11:35 | MHC.SHP ---
Pre-Procedural Eval Section A Date of Service: 04/26/22 The patient is an INPATIENT: No Changes since office visit: No Cold of Flu in the past 2 weeks, No New Medical Problems, No Changes in Medication and No Patient answered all questions The History & Physical has been completed within 30 days and I have reviewed it.: Yes Section B Chief Complaint: Trigger finger, right middle finger Allergies: Allergies Allergy/AdvReac Type Severity Reaction Status Date / Time No Known Allergies Allergy Verified 01/09/22 11:33 [No Known Allergies*] Plan I have reviewed the history and physical and performed a pertinent physical examination on my patient. No changes have occurred unless specified. Time Spent With Patient Time: Total time managing care of this patient today ____ minutes.
--- NOTE | 2022-04-26 11:35 | W.PM.OPN ---
Operative Note Operative Note Date of Service: 04/26/22 Narrative: Operative Note Preop diagnosis: 1. Right middle finger Trigger finger Postop diagnosis: 1. right middle finger Trigger finger Procedure: 1. right middle finger A1 maegan release Surgeon: Erika Potter MD Anesthesia: local block using 1% lidocaine with epinephrine Findings: No locking or catching after A1 maegan release EBL: Less than 5 mL Tourniquet time: None Specimens: None Complications: None Disposition: Brought to recovery room in stable condition Plan: Follow-up for 10-14 days for wound check and suture removal Indications: The patient is 51 years old, with a right middle finger trigger finger that has been unresponsive to nonoperative management. The risks and benefits of operative treatment including but not limited to risk of damage to blood vessels, nerves, tendons, infection, persistent pain, persistent symptoms, recurrence or possible need for additional surgery were discussed with the patient and the patient wishes to proceed with surgery. Procedure: Once consent was obtained a local block was performed in the preop area using a combination of 1% lidocaine with epinephrine. The patient was then brought back to the operating suite and placed on the operative table in supine position. A tourniquet was applied to the proximal aspect of the right upper extremity and the limb was prepped and draped in a standard surgical fashion. Once assured that we had a good block, a 1.5 cm oblique incision was made centered over the A1 maegan of the right middle finger . The incision was made through the skin to the subcutaneous tissues using a #15 blade. Careful dissection was made down to the level of the A1 maegan using tenotomy scissors, with care being taken to protect the nearby neurovascular structures. A longitudinal incision was made in the A1 maegan 1st using a #15 blade, then using tenotomy scissors under direct visualization. The A1 maegan was noted to be thickened. Following our A1 maegan release, we no longer saw any locking or catching of the digit with flexion and extension. Once satisfied with our A1 maegan release the wound was copiously irrigated with normal saline and hemostasis was obtained with a brief period of local pressure. The skin edges were reapproximated with some 5.0 nylon suture material and a sterile dressing was applied. The patient appears to have tolerated the procedure well and with no complications. All digits were well vascularized at the conclusion of the case.
[2022-04-26 12:09] VITALS: BP 117/63; PULSE 75; RESP 18; TEMP 36.3; O2SAT 95
== END 2022-04-26 12:25 | disposition home or self-care (01) ==
PROVIDERS: PCP Internal Medicine; Visit Provider Orthopaedic Surgery
PROC: (CPT 26055; principal; 2022-04-26 13:00)
DX: M65.331 Trigger finger, right middle finger (principal); D64.9 Anemia, unspecified; G40.109 Localization-related (focal) (partial) symptomatic epilepsy and epileptic syndromes with simple partial seizures, not intractable, without status epilepticus; E03.9 Hypothyroidism, unspecified; K21.9 Gastro-esophageal reflux disease without esophagitis
CPT/HCPCS: 26055; J0171

== ENCOUNTER → 2022-05-09 12:54 | Outpatient (BNVA) | payer MEDICAID, SELFPAY | PROVIDERS: PCP Internal Medicine; Visit Provider Orthopaedic Surgery | DX: Z13.89 Encounter for screening for other disorder (principal) ==

== ENCOUNTER 2022-05-23 15:17 | Outpatient (REF) | payer MEDICAID, SELFPAY ==
[2022-05-29 16:29] LABS: HPV mRNA E6/E7 rflx Not Detected (Not Detected)
== END 2022-05-23 15:18 | disposition home or self-care (01) ==
LOC: HO.LNP 15:17
PROVIDERS: PCP Internal Medicine; Visit Provider Obstetrics & Gynecology
DX: Z01.419 Encounter for gynecological examination (general) (routine) without abnormal findings (principal); Z11.51 Encounter for screening for human papillomavirus (HPV)
CPT/HCPCS: 87624; 88142

== ENCOUNTER 2022-06-20 15:42 | Outpatient (REF) | payer MEDICAID, SELFPAY ==
--- NOTE | ~2022-06-20 | MM_ITS ---
EXAMINATION: MM SCREENING DIGITAL BREAST TOMOSYNTHESIS, BILATERAL CLINICAL INFORMATION: Screening. Asymptomatic. The lifetime risk of breast cancer based on the Tyrer-Cuzick Model is 5.3%. COMPARISON: Mammography: June 17, 2020 and studies dating back to March 02, 2015. TECHNIQUE: Digital breast tomosynthesis is performed in both the craniocaudal and mediolateral oblique views along with computer-aided detection (CAD). Synthesized 2D images are generated from the tomosynthesis. FINDINGS: There are scattered areas of fibroglandular density (ACR BI-RADS breast composition Category b). There is a stable parenchymal pattern of the left breast with no new abnormal dominant masses or suspicious grouping of microcalcifications. Within the inferior medial aspect of the right breast approximately 8 cm from the nipple there is a circumscribed lobulated density measuring approximately 6 mm in diameter for which spot compression films and possible ultrasound is recommended. MM/MM tomosynthesis screening BI IMPRESSION: Right breast density for further evaluation. ASSESSMENT: BI-RADS 0: Incomplete - Need Additional Imaging Evaluation RECOMMENDATION: 1. Additional views of the right breast. 2. Targeted ultrasound if warranted after review of the additional views. 3. Radiology department staff will contact the patient for additional imaging. This patient's information was entered into a reminder system with a target due date for their next mammogram.
== END 2022-06-20 15:43 | disposition home or self-care (01) ==
LOC: HO.MAMMO 15:42
PROVIDERS: PCP Internal Medicine; Visit Provider Obstetrics & Gynecology
DX: Z12.31 Encounter for screening mammogram for malignant neoplasm of breast (principal)
CPT/HCPCS: 77063; 77067

== ENCOUNTER → 2022-07-03 13:08 | Outpatient (BNVA) | payer MEDICAID, SELFPAY | PROVIDERS: PCP Internal Medicine; Visit Provider Physician Assistant | DX: Z13.89 Encounter for screening for other disorder (principal) ==

== ENCOUNTER 2022-07-09 13:33 | Outpatient (REF) | payer MEDICAID, SELFPAY ==
--- NOTE | ~2022-07-09 | MM_ITS ---
EXAMINATION: MM DIAGNOSTIC DIGITAL BREAST TOMOSYNTHESIS, RIGHT US DIAGNOSTIC ULTRASOUND BREAST, RIGHT CLINICAL INFORMATION: Recall from screening for question of circumscribed lobulated density lower inner right breast. COMPARISON: Prior mammography studies exams, most recent 06/20/2022. TECHNIQUE: Digital breast tomosynthesis is performed. 2D images are generated from the tomosynthesis. The following views are obtained: Spot CC, spot MLO x2 Ultrasound right breast is targeted to the medial breast using grayscale imaging and color Doppler without and with harmonics. FINDINGS: There are scattered areas of fibroglandular density (ACR BI-RADS breast composition Category b). The additional views show benign-appearing smooth nodular asymmetry overlying background fibronodular pattern. Finding is less conspicuous, possibly chronic. No spiculation or definite developing density. Ultrasound demonstrates no cystic or solid mass or architectural abnormality. No focal duct ectasia. Results are discussed with the patient at time of visit. Management plan is for short interval follow-up right mammography to reassess mammographic finding. Ultrasound if warranted. MM/MM tomosynthesis added views R IMPRESSION: -Benign-appearing smooth nodular asymmetry lower inner right breast, less conspicuous. -Unremarkable targeted right breast ultrasound. ASSESSMENT: BI-RADS 3: Probably Benign RECOMMENDATION: Diagnostic right mammography in 6 months. This patient's information was entered into a reminder system with a target due date for their next mammogram.
== END 2022-07-09 13:34 | disposition home or self-care (01) ==
LOC: HO.MAMMO 13:33
PROVIDERS: Visit Provider Obstetrics & Gynecology
DX: R92.2 Inconclusive mammogram (principal)
CPT/HCPCS: 76642; 77061; 77065

== ENCOUNTER 2022-07-25 08:19 | Outpatient (REF) | payer MEDICAID, SELFPAY ==
--- NOTE | ~2022-07-25 | XR_ITS ---
EXAMINATION: XR AP BILATERAL KNEE STANDING XR BILATERAL KNEE CLINICAL INDICATIONS: Pain. COMPARISON: Bilateral knee 09/14/2019 TECHNIQUE: AP bilateral knee standing. 2 views each knee. FINDINGS: There is loss of medial and lateral compartment joint space with periarticular spurring. No bony erosive changes. No loose bodies. The soft tissues are normal. RIGHT KNEE: There is loss of patellofemoral compartment joint space with superior patellar spurring. No loose bodies or joint effusion seen. No bony erosive changes. LEFT KNEE: There is loss of patellofemoral compartment joint space with superior patellar spurring. No loose bodies and joint effusion. The soft tissues are normal. XR/XR knee RT 2V IMPRESSION: Degenerative arthritic changes bilateral knee joints with superior patellar spurring. No visible acute fracture or dislocation seen. No loose bodies or joint effusion seen. There is no major change compared to previous knee x-ray 09/14/2019
--- NOTE | ~2022-07-25 | XR_ITS ---
EXAMINATION: XR AP BILATERAL KNEE STANDING XR BILATERAL KNEE CLINICAL INDICATIONS: Pain. COMPARISON: Bilateral knee 09/14/2019 TECHNIQUE: AP bilateral knee standing. 2 views each knee. FINDINGS: There is loss of medial and lateral compartment joint space with periarticular spurring. No bony erosive changes. No loose bodies. The soft tissues are normal. RIGHT KNEE: There is loss of patellofemoral compartment joint space with superior patellar spurring. No loose bodies or joint effusion seen. No bony erosive changes. LEFT KNEE: There is loss of patellofemoral compartment joint space with superior patellar spurring. No loose bodies and joint effusion. The soft tissues are normal. XR/XR knee standing BI IMPRESSION: Degenerative arthritic changes bilateral knee joints with superior patellar spurring. No visible acute fracture or dislocation seen. No loose bodies or joint effusion seen. There is no major change compared to previous knee x-ray 09/14/2019
--- NOTE | ~2022-07-25 | XR_ITS ---
EXAMINATION: XR AP BILATERAL KNEE STANDING XR BILATERAL KNEE CLINICAL INDICATIONS: Pain. COMPARISON: Bilateral knee 09/14/2019 TECHNIQUE: AP bilateral knee standing. 2 views each knee. FINDINGS: There is loss of medial and lateral compartment joint space with periarticular spurring. No bony erosive changes. No loose bodies. The soft tissues are normal. RIGHT KNEE: There is loss of patellofemoral compartment joint space with superior patellar spurring. No loose bodies or joint effusion seen. No bony erosive changes. LEFT KNEE: There is loss of patellofemoral compartment joint space with superior patellar spurring. No loose bodies and joint effusion. The soft tissues are normal. XR/XR knee LT 2V IMPRESSION: Degenerative arthritic changes bilateral knee joints with superior patellar spurring. No visible acute fracture or dislocation seen. No loose bodies or joint effusion seen. There is no major change compared to previous knee x-ray 09/14/2019
== END 2022-07-25 08:20 | disposition home or self-care (01) ==
LOC: HO.HOSX 08:19
PROVIDERS: Visit Provider Physician Assistant
DX: M22.2X1 Patellofemoral disorders, right knee (principal); M22.2X2 Patellofemoral disorders, left knee
CPT/HCPCS: 73560; 73565; 99202

== ENCOUNTER → 2022-08-03 09:59 | Outpatient (BNVA) | payer MEDICAID, SELFPAY | PROVIDERS: PCP Internal Medicine; Referring Provider Internal Medicine; Visit Provider Physician Assistant Surgical | DX: E66.01 Morbid (severe) obesity due to excess calories (principal); Z68.41 Body mass index [BMI] 40.0-44.9, adult | CPT/HCPCS: 99202 ==

== ENCOUNTER 2022-08-09 10:21 | Outpatient (REF) | payer MEDICAID, SELFPAY ==
--- NOTE | ~2022-08-09 | XR_ITS ---
EXAMINATION: XR CHEST CLINICAL INFORMATION: Morbid obesity COMPARISON: August 22, 2021 TECHNIQUE: 2 views of the chest were obtained. FINDINGS: No significant abnormality is noted involving the heart, lungs, mediastinum, bony thorax or soft tissues. XR/XR chest 2V IMPRESSION: No acute disease.
--- NOTE | 2022-08-09 10:26 | ECG_ITS ---
Test Reason : E66.01 Blood Pressure : / mmHG Vent. Rate : 067 BPM Atrial Rate : 067 BPM P-R Int : 130 ms QRS Dur : 086 ms QT Int : 404 ms P-R-T Axes : 057 022 020 degrees QTc Int : 426 ms Normal sinus rhythm Nonspecific ST abnormality Borderline ECG When compared with ECG of 22-AUG-2021 16:56, Vent. rate has decreased BY 40 BPM Referred By: Keith Bond Electronically Signed By:DENNYS GONSALEZ
[2022-08-09 10:52] LABS: MANUAL DIFF FLAG NO
[2022-08-09 11:24] LABS: Basophils Absolute Auto 0.1 X10*3/uL (0.0-0.2); Basophils Percent Auto 0.8 % (0-2); Eosinophils Absolute Auto 0.1 X10*3/uL (0.0-0.4); Eosinophils Percent Auto 1.4 % (0-4); Hematocrit 41.6 % (37.0-47.0); Hemoglobin 13.6 g/dl (12.0-16.0); Imm Gran Abs Auto 0.05 X10*3/uL (0.00-0.03); Imm Gran Pct Auto 0.7 % (0.0-0.4); Lymphocytes Absolute Auto 2.2 X10*3/uL (1.2-4.9); Lymphocytes Percent Auto 30.8 % (20-40); Mean Corpuscular HGB Conc 32.7 g/dl (31.0-35.0); Mean Corpuscular Hemoglobin 30.9 pg (27.0-33.0); Mean Corpuscular Volume 94.5 fL (80.0-98.0); Mean Platelet Volume 10.2 fL (9.4-12.3); Monocytes Absolute Auto 0.5 X10*3/uL (0.1-1.2); Monocytes Percent Auto 6.5 % (2-11); Neutrophils Absolute Auto 4.4 x10*3/uL (2.0-8.3); Neutrophils Percent Auto 59.8 % (45-73); Platelet Count 338 X10*3/uL (160-400); Red Cell Distribution Width 13.9 % (11.0-16.0); White Blood Count 7.3 X10*3/uL (4.8-10.8)
[2022-08-09 11:30] LABS: Estimated Average Glucose 108 mg/dL; Hemoglobin A1c % 5.4 %
[2022-08-09 12:19] LABS: Alanine Aminotransferase 30 U/L (0-31); Albumin Level 3.9 g/dL (3.5-5.0); Alkaline Phosphatase 81 U/L (39-117); Anion Gap 13 (12-20); Aspartate Amino Transferase 23 U/L (5-31); Bilirubin Total 0.6 mg/dL (0.0-1.0); Blood Urea Nitrogen 19 mg/dL (9-16); C Reactive Protein 1.33 mg/dL (< or = 0.50); Carbon Dioxide 26 mmol/L (22-29); Chloride 107 mmol/L (96-108); Cholesterol 164 mg/dL; Estimated Glomerular Filt Rate > 60; Glucose Random 85 mg/dL (60-115); HDL Cholesterol 44 mg/dL; Iron 63 mcg/dL (30-160); LDL Cholesterol Calculated 107 mg/dl; Percent Iron Saturation 23 % (15-50); Potassium 4.7 mmol/L (3.3-5.1); Sodium 141 mmol/L (135-145); Total Iron Binding Capacity 272 mcg/dL (228-428); Triglycerides 66 mg/dL; Unsaturated Iron Binding 209 ug/dL
[2022-08-09 12:36] LABS: Ferritin 90 ng/mL (10-250); Folate 15.5 ng/mL (> or = 4.0); Insulin 12 uU/mL (2-29); TSH reflex Free T4 1.59 uIU/mL (0.32-4.0); Vitamin B12 348 pg/mL (200-900); Vitamin D 25-OH Total 32.4 ng/mL (>30)
[2022-08-10 14:04] LABS: Calcium (PTHI) 9.4 mg/dL (8.6-10.4); PTHI 55 pg/mL (16-77)
[2022-08-14 00:44] LABS: Zinc 67 mcg/dL (60-130)
[2022-08-15 17:38] LABS: Vitamin A 66 mcg/dL (38-98)
[2022-08-16 05:54] LABS: Vitamin B1 10 nmol/L (8-30)
== END 2022-08-09 10:22 | disposition home or self-care (01) ==
LOC: HO.XRAY 10:21
PROVIDERS: PCP Internal Medicine; Visit Provider Physician Assistant Surgical
DX: E66.01 Morbid (severe) obesity due to excess calories (principal)
CPT/HCPCS: 36415; 71046; 80053; 80061; 82306; 82607; 82728; 82746; 83036; 83525; 83540; 83970; 84425; 84443; 84590; 84630; 85025; 86140; 93005

== ENCOUNTER 2022-08-23 08:00 | Outpatient (RCR) | payer MEDICAID, SELFPAY ==
--- NOTE | 2022-08-21 15:23 | MHC.PT.EP ---
[facility] [place] [facility] [place] [facility] [place] Office [address] Lalo Nance [address] [phone] F: [phone] F: [phone] F: [phone] F: [phone] Physical Therapy Plan of Care Date of Evaluation: Date of Surgery: Diagnosis: PATELLOFEMORAL ARTHRALGIA OF BILATERAL KNEES Assessment: 51 YO FEMALE REF TO PT WITH A H/O Rt > Lt KNEE PFPS. Pt HAS MECHANICAL ISSUES OF (+) GENU VALGUS/ ASYMMETRICAL PELVIS; DECR AROM Rt > Lt KNEE, (+) STRENGTH DEFICITS IN HER LUMBOPELVIC/ CORE/ PROXIMAL LEs, (+) LATERAL RETINACULAR TISSUE RESTRICTION W LATERAL PATELLAR DRIFT, AND PAIN Rt PES ANSERINE/ SUPERO-MED PATELLA/ POSTERIOR Rt KNEE. FUNCTIONALLY, Pt HAS DECR ROSEANNE TO SQUATTING, STANDING, WALKING, STAIR MANAGEMENT, AND PHYSICALLY DEMANDING ADLS. SHE WOULD BENEFIT FROM PT TO ADDRESS PAIN MGMT, TRUNK/LEs MECHANICS, SOFT TISSUE EASING/MGMT, AND DEV A PROGRESSIVE HEP. Frequency and Duration: The patient will be seen 2 x WK x 4 WKS Short Term Goals: *Pt'S RIGHT KNEE PAIN DECR TO 2-3/10 *Pt INCREASE Rt KNEE ROM -> 0* EXTEN AND PROGRESSIVELY TO 120* FLEX *INCR FLEXINB IN PSOAS/ CALF MM TO IMPROVE EFFICIENCY OF GAIT ON LEVEL AND STAIRS [employer] Goals: Pt INDEP W HEP PROGRESSION AND SELF-SX MGMT STRATEGIES Pt RESUME REG ADLs EVIDENT W IMPROVED LEFI SCORE (AT EVAL 48/80 ) Pt INCR LE STRENGTH BY 1 GRADE Treatment Plan: Modalities to reduce pain, spasms and effusion. Manual therapy to restore motion and function. Therapeutic exercise to improve strength and flexibility. Neuromuscular re-education for posture and balance. Therapeutic activities to return to functional activities of daily living. Electronically signed by: MONSTER SANTAMARIA,PT Please sign and return to therapist. Thank you for your referral.
--- NOTE | 2022-09-07 14:49 | MHC.PT.DC ---
[facility] [place] Office [place] Office [place] Office [address] Lalo Nance [address] [phone] F: [phone] F: [phone] F: [phone] F: [phone] Physical Therapy Discharge Report Diagnosis: PATELLOFEMORAL ARTHRALGIA OF BILATERAL KNEES Date of Surgery: Date of Evaluation: 08/21/22 Date of Discharge: 09/07/22 Treatments to Date: 2 Cancellations to Date: 1 No Shows to Date: 3 Discharge Status: Improved Function Independent with HEP Visit Non-compliance Discharge Summary: Pt NICOLE PROGRESS IN PT, ADV W THER EXER AND IMPROVED FUNCT MOB- HER PAIN DECREASED- A FINAL REASSESSMENT WAS NOT PERFORMED DUE TO POOR ATTENDANCE W ITH LAST FEW SCHED PT APPTS. Electronically signed by: MONSTER SANTAMARIA,PT Please sign and return to therapist. Thank you for your referral.
== END 2022-09-07 14:49 | disposition home or self-care (01) ==
LOC: HO.PT 08:00
PROVIDERS: PCP Internal Medicine; Visit Provider Physician Assistant
DX: M22.2X1 Patellofemoral disorders, right knee (principal)
CPT/HCPCS: 97110; 97162

== ENCOUNTER → 2022-08-24 08:52 | Outpatient (BNVA) | payer MEDICAID, SELFPAY | PROVIDERS: PCP Internal Medicine; Visit Provider Physician Assistant Surgical | DX: E66.01 Morbid (severe) obesity due to excess calories (principal); Z68.41 Body mass index [BMI] 40.0-44.9, adult | CPT/HCPCS: 99212 ==

== ENCOUNTER → 2022-08-30 08:39 | Outpatient (BNVA) | payer MEDICAID, SELFPAY | PROVIDERS: PCP Internal Medicine; Visit Provider Dietitian, Registered | DX: E66.01 Morbid (severe) obesity due to excess calories (principal) | CPT/HCPCS: 97802 ==

== ENCOUNTER → 2022-09-19 14:22 | Outpatient (BNVA) | payer MEDICAID, SELFPAY | PROVIDERS: PCP Internal Medicine; Visit Provider Physician Assistant Surgical | DX: E66.01 Morbid (severe) obesity due to excess calories (principal); Z68.41 Body mass index [BMI] 40.0-44.9, adult | CPT/HCPCS: 99212 ==

== ENCOUNTER 2022-09-20 09:08 | Outpatient (REF) | payer MEDICAID, SELFPAY ==
--- NOTE | ~2022-09-20 | FL_ITS ---
PROCEDURE: XR FLUOROSCOPY UPPER GI WITH AIR CLINICAL INFORMATION: Morbid obesity. COMPARISON: None available. TECHNIQUE: Air-contrast upper GI examination with thin and thick barium and half-inch diameter barium tablet. FINDINGS: There is normal apposition of the vocal cords while saying E . There is normal elevation of the soft palate while saying candy . Patient swallowed thin and thick barium and half-inch diameter barium tablet without difficulty. No nasopharyngeal reflux or tracheal aspiration appreciated. There is normal esophageal motility without persistent stricture or mucosal irregularity. No hiatal hernia. There was mild transient gastroesophageal reflux during the procedure. The stomach demonstrated normal distensibility without abnormal mass or ulceration. The duodenal bulb and sweep appeared unremarkable. No delay in gastric emptying. FLUOROSCOPY TIME: 1.8 minutes DOSE AREA PRODUCT: 18.193 Gy-cm2 (swanson-centimeter squared) FL/FL upper GI w air IMPRESSION: Mild transient gastroesophageal reflux without mucosal abnormality appreciated.
--- NOTE | ~2022-09-20 | US_ITS ---
EXAMINATION: US COMPLETE ABDOMEN WITH LIVER ELASTOGRAPHY CLINICAL INFORMATION: Obesity COMPARISON: None available. TECHNIQUE: Real-time imaging of the abdominal viscera. Noninvasive ultrasound liver fibrosis assessment is performed using Julian ElastPQ point quantification shear wave elastography (2D-SWE) with a C5-2 MHz transducer. Multiple elastography samples are obtained. FINDINGS: PANCREAS: Normal. ABDOMINAL AORTA: The proximal, middle, and distal aortic segments are normal in caliber. INFERIOR VENA CAVA: Visualized portions are normal. LIVER: Liver echotexture is increased probably representing fatty infiltration. The liver is normal in size and contour. There is a hypoechoic area adjacent to the gallbladder, characteristic location of focal fatty sparing. There is a peripheral hyperechoic area in the right lobe of the liver measuring 1.6 x 0.9 x 1.2 cm. No intrahepatic biliary duct dilatation. The right lobe measures 16 cm in length. The left lobe measures 9 cm in length. Portal flow is normal/hepatopedal Shear wave liver elastography median stiffness is 1.38 m/s (reference: normal median stiffness is 1.3 m/s or less). IQR/median stiffness to assess sampling precision is 0.23 (reference: good quality data set is IQR/median stiffness of 0.15 or less). GALLBLADDER: Normal. The gallbladder is physiologically distended without evidence of stones, sludge, polyps, wall thickening or pericholecystic fluid. COMMON BILE DUCT: Normal in caliber measuring 0.4 cm in diameter. RIGHT KIDNEY: Normal. No hydronephrosis. No renal calculi or focal parenchymal lesions. The kidney measures 11 cm in maximum dimension. LEFT KIDNEY: Normal. No hydronephrosis. No renal calculi or focal parenchymal lesions. The kidney measures 11 cm in maximum dimension. SPLEEN: Normal. The spleen measures 10.5 cm in maximum dimension. FREE FLUID: None. US/US abdomen comp w elastography IMPRESSION: 1. Impression: Echogenic liver probably representing fatty infiltration. 1.6 x 0.9 x 1.2 cm peripheral hyperechoic area in the right lobe of the liver. This could be further characterization with liver MRI. 2. Liver elastography: Limited due to liver sampling. In the absence of other known clinical signs, rules out compensated advanced chronic liver disease. REFERENCE: Society of Radiologists in Ultrasound Liver Stiffness Thresholds (2020): LIVER STIFFNESS THRESHOLDS: *Liver Stiffness equal or less than 1.3 m/s: High probability of being normal. *Liver Stiffness less than 1.7 m/s: In the absence of other known clinical signs, rules out compensated advanced chronic liver disease. *Liver Stiffness 1.7-2.1 m/s: Suggestive of compensated advanced chronic liver disease but need further test for confirmation. *Liver Stiffness over 2.1 m/s: Rules in compensated advanced chronic liver disease. *Liver Stiffness over 2.4 m/s: Suggestive of clinically significant portal hypertension. QUALITY OF DATA SET: *IQR/Median value equal or less than 0.15 implies a quality data set. *IQR/Median value over 0.15 implies a poor quality data set. SIGNIFICANT CHANGE FROM PRIOR EXAM: Significant change if liver stiffness measurement is 10% or greater from prior exam. OTHER CONSIDERATIONS: The stage of liver fibrosis may be overestimated in the setting of acute hepatitis, liver inflammation, elevated liver function tests, hepatic vascular congestion, obstructive cholestasis, non-fasting state, and infiltrative diseases such as amyloidosis and lymphoma. In some patients with NAFLD, the liver stiffness thresholds for compensated advanced chronic liver disease may be lower. In causes other than viral hepatitis and NAFLD, liver stiffness thresholds are not well established.
== END 2022-09-20 09:09 | disposition home or self-care (01) ==
LOC: HO.XRAY 09:08
PROVIDERS: PCP Internal Medicine; Visit Provider Physician Assistant Surgical
DX: Z01.818 Encounter for other preprocedural examination (principal); E66.01 Morbid (severe) obesity due to excess calories; K21.9 Gastro-esophageal reflux disease without esophagitis
CPT/HCPCS: 74246; 76705; 76981

== ENCOUNTER → 2022-10-19 08:35 | Outpatient (BNVA) | payer MEDICAID, SELFPAY | PROVIDERS: PCP Internal Medicine; Visit Provider Physician Assistant Surgical | DX: E66.01 Morbid (severe) obesity due to excess calories (principal); Z68.41 Body mass index [BMI] 40.0-44.9, adult | CPT/HCPCS: 99212 ==

== ENCOUNTER 2022-10-22 07:45 | Outpatient (REF) | payer MEDICAID, SELFPAY ==
[2022-10-25 11:42] LABS: H Pylori Breath Test Negative (Negative)
== END 2022-10-22 07:46 | disposition home or self-care (01) ==
LOC: HO.LNP 07:45
PROVIDERS: Visit Provider Physician Assistant Surgical
DX: Z11.0 Encounter for screening for intestinal infectious diseases (principal)
CPT/HCPCS: 83013

== ENCOUNTER → 2022-10-22 09:08 | Outpatient (BNVA) | payer MEDICAID, SELFPAY | PROVIDERS: PCP Internal Medicine; Visit Provider Physician Assistant Surgical | DX: Z11.0 Encounter for screening for intestinal infectious diseases (principal) | CPT/HCPCS: 99211 ==

== ENCOUNTER → 2022-10-24 09:08 | Outpatient (BNVA) | payer MEDICAID, SELFPAY | PROVIDERS: PCP Internal Medicine; Visit Provider Dietitian, Registered | DX: E66.01 Morbid (severe) obesity due to excess calories (principal); Z71.3 Dietary counseling and surveillance | CPT/HCPCS: 97803 ==

== ENCOUNTER → 2022-11-15 08:46 | Outpatient (BNVA) | payer MEDICAID, SELFPAY | PROVIDERS: PCP Internal Medicine; Visit Provider Physician Assistant Surgical | DX: E66.9 Obesity, unspecified (principal); Z68.39 Body mass index [BMI] 39.0-39.9, adult | CPT/HCPCS: 99212 ==

== ENCOUNTER → 2022-11-16 09:05 | Outpatient (BNVA) | payer OTHER, MEDICAID, SELFPAY | PROVIDERS: PCP Internal Medicine; Visit Provider Counselor Mental Health ==

== ENCOUNTER → 2022-12-19 08:07 | Outpatient (BNVA) | payer MEDICAID, SELFPAY | PROVIDERS: PCP Internal Medicine; Visit Provider Surgery ==

== ENCOUNTER 2023-02-12 11:00 | Outpatient (AMB) | payer MEDICAID, SELFPAY ==
--- NOTE | 2023-02-12 11:03 | A.OFFVIS_ITS ---
Intake Vital Signs 3 02/12/23 11:09 Height 5 ft 4 in Weight 229 lb 4 oz BMI 39.3 BP 114/78 Blood Pressure Location Lt brachial Position Sitting Pulse 70 Intake Visit Reasons: epidermal cyst on the back Intake Note: Patient is seen in office for evaluation and treatment of an epidermal back cyst. Patient c/o: onset over 12 yrs, increase/decrease, has squeeze it and had blood and pus come out, painful pulsating itching, denies any other concerns, was I&D in the past. Recreational Vehicle Repairer Required: Yes Recreational Vehicle Repairer Language: Chadian Allergies No Known Allergies [No Known Allergies*] Allergy (Verified 02/12/23 11:08) Medication List - Last Reconciled 02/12/23 by Sammy Peraza MD cyanocobalamin (vitamin B-12) 500 mcg PO DAILY ferrous sulfate (Iron (ferrous sulfate)) 325 mg PO DAILY levothyroxine 50 mcg PO DAILY naproxen 500 mg PO BID PRN HPI HPI Comments 2 History of Present Illness0 Details 52-year-old female patient presenting wi th an enlarging epidermal inclusion cyst of the upper midback. It has been present for many years and has gradually increased in size. She was able to squeeze this is recently and produced a large amount of thick white secretion. She reports that the same cyst was previously incised and drained after infection developed. She is requesting excision of this lesion. 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 Female Reproductive History Menstrual Age of Menarche: 12 Review of Systems Const All systems reviewed & are unremarkable except as noted in HPI and below Physical Exam Vital Signs: Last Vital Signs Pulse 70 02/12/23 11:09 BP 114/78 02/12/23 11:09 BMI result Body Mass Index 39.3 Const General: comfortable Nutritional Appearance: well nourished Orientation/consciousness: patient oriented x3 Limitations: no limitations Resp Effort & Inspection: normal respiratory effort, no audible wheezes, no cough and no respiratory distress GI Inspection: Yes normal to inspection Back/Spine/Pelvis Other: Palpable epidermal inclusion cyst with a bluish discoloration in the overlying skin located in the upper mid back as noted below. Lesion measures approximately 1 cm in diameter. There is no fluctuance and no tenderness to palpation. Back/spine/pelvis image: 2 1. 1 cm epidermal inclusion cyst in upper mid back Skin Other: Epidermal inclusion cyst of back as noted above. Skin otherwise warm and dry a rash Neuro General: patient oriented x3 Extrem General: Yes normal to inspection Assessment & Plan Assessment & Plan (1) Epidermal inclusion cyst: Code(s): L72.0 - Epidermal cyst Plan 52-year-old female patient with history of infected epidermal inclusion cyst of the upper midback presenting with an enlarging cyst at the same location. The patient is requested excision of this lesion. She will be scheduled as an office based procedure at her earliest convenience. After discussion of the procedure, risks, and alternatives, she consents to the procedure. Coding Level of Care Code New Pt Level 4 (82478) Diagnoses Epidermal inclusion cyst L72.0
[2023-02-12 11:09] VITALS: BP 114/78; PULSE 70; BMI 39.3
== END 2023-02-12 11:21 | disposition home or self-care (01) ==
PROVIDERS: PCP Internal Medicine; Visit Provider Surgery
DX: L72.0 Epidermal cyst (principal)
CPT/HCPCS: 99204

== ENCOUNTER → 2023-02-12 11:00 | Outpatient (BNVA) | payer MEDICAID, SELFPAY | PROVIDERS: PCP Internal Medicine; Visit Provider Surgery ==

== ENCOUNTER 2023-03-14 09:01 | Outpatient (REF) | payer MEDICAID, SELFPAY | END 2023-03-14 09:02 | disposition home or self-care (01) | LOC: HO.LNP 09:01 | PROVIDERS: Visit Provider Surgery | DX: L72.0 Epidermal cyst (principal); Z79.899 Other long term (current) drug therapy | CPT/HCPCS: 11402; 88304 ==

== ENCOUNTER 2023-03-14 09:21 | Outpatient (AMB) | payer MEDICAID, SELFPAY ==
--- NOTE | 2023-03-14 09:22 | A.OFFVIS_ITS ---
Intake Vital Signs 3 03/14/23 09:30 Height 5 ft 4 in Weight 233 lb 11.04 oz BMI 40.1 BP 110/72 Blood Pressure Location Lt brachial Position Sitting Intake Visit Reasons: Excision of back cyst Intake Note: Patient is seen for excision of a back cyst. Patient c/o:no changes here for lump removal Coding Specialist Home Health Required: No Accompanied by: Self / Same As Patient Allergies No Known Allergies [No Known Allergies*] Allergy (Verified 03/14/23 09:22) Medication List - Last Reconciled 03/14/23 by Sammy Peraza MD cyanocobalamin (vitamin B-12) 500 mcg PO DAILY ferrous sulfate (Iron (ferrous sulfate)) 325 mg PO DAILY levothyroxine 50 mcg PO DAILY naproxen 500 mg PO BID PRN HPI HPI Comments 2 History of Present Illness0 Details Patient returns today for excision of a epidermal inclusion cyst of her upper mid back. 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 1 cm cyst upper mid Office Procedures Excision Details: Preoperative diagnosis: Epidermal inclusion cyst upper mid back Postoperative diagnosis: Same Procedure: Excision of epidermal inclusion cyst upper mid back Surgeon: Sammy Peraza MD Director Of Philanthropy: None Anesthesia: Lidocaine 1% with epinephrine Indications for procedure: 52-year-old female patient with a previously infected epidermal inclusion cyst of upper mid back Operative findings: Noninfected epidermal inclusion cyst upper mid back 1 cm diameter Specimen: Epidermal inclusion cyst Estimated blood loss: Less than 2 mL Complications: None Procedure details: Patient was brought to the procedure room and placed in a prone position. The site of surgery was confirmed by the patient in the upper mid back. After assuring informed consent, the skin was prepped with Betadine and draped in a sterile fashion. Local anesthesia was then infiltrated circumferentially an elliptical incision created with in a longitudinal fashion with a 15 blade scalpel. Incision was carried out through subcutaneous tissue and around the cyst wall. The lesion was excised and sent to pathology for further examination. After assuring adequate hemostasis skin was closed using interrupted 3-0 nylon sutures. Sterile dressings consisting of 2 x 2 gauze and Tegaderm were then applied. The patient tolerated the procedure well. She was discharged in stable condition. She will follow-up in 1 week for suture removal. [id number]/arms/legs 0.6-1cm Procedure code (CPT) selection complete Assessment & Plan Assessment & Plan (1) Epidermal inclusion cyst: Code(s): L72.0 - Epidermal cyst Plan 52-year-old female patient with a previously infected epidermal inclusion cyst of the upper mid back. She presented today for excision of this cyst and tolerated the procedure well. She will follow-up in 1 week for suture removal. Orders: Orders 2 Surgical Today L72.0 - Epidermal cyst Coding Level of Care Code Procedure Only Diagnoses Epidermal inclusion cyst L72.0 CPT Codes Trunk/Arms/Legs - CPT: [id number]-[id number]/arms/legs 0.6-1cm ([id number])
[2023-03-14 09:30] VITALS: BP 110/72; BMI 40.1
== END 2023-03-14 09:51 | disposition home or self-care (01) ==
PROVIDERS: PCP Internal Medicine; Visit Provider Surgery
DX: L72.0 Epidermal cyst (principal)
CPT/HCPCS: 11402

== ENCOUNTER 2023-03-21 09:35 | Outpatient (AMB) | payer MEDICAID, SELFPAY ==
--- NOTE | 2023-03-21 09:36 | A.OFFVIS_ITS ---
Intake Vital Signs 3 03/21/23 09:43 Height 5 ft 4 in Weight 234 lb BMI 40.2 BP 144/69 H Blood Pressure Location Lt brachial Position Sitting Pulse 75 Intake Visit Reasons: s/p excision of back cyst Intake Note: Patient is seen in office for post op assessment post excision of back cyst. Patient c/o: denies any concerns, sutures removed off proc: 03/14/23 Scissors Grinder Required: No Accompanied by: Self / Same As Patient Allergies No Known Allergies [No Known Allergies*] Allergy (Verified 03/14/23 09:22) HPI HPI Comments 2 History of Present Illness0 Details 52-year-old female patient returning 1 w [place] following excision of a epidermal inclusion cyst of the upper midback. She tolerated the procedure well but does report feeling itchy at the site. She returns today for suture removal. Pathology confirmed epidermal inclusion cyst. 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 Sutures removed and wounds found to be well healed. Back/spine/pelvis image: 2 1. Assessment & Plan Assessment & Plan (1) Epidermal inclusion cyst: Code(s): L72.0 - Epidermal cyst Plan 52-year-old female patient status post excision of an epidermal inclusion cyst of the back. She tolerated the procedure well the wounds are well healed. She should follow up as needed. Coding Level of Care Code Global (85296) Diagnoses Epidermal inclusion cyst L72.0
[2023-03-21 09:43] VITALS: BP 144/69; PULSE 75; BMI 40.2
== END 2023-03-21 09:44 | disposition home or self-care (01) ==
PROVIDERS: PCP Internal Medicine; Visit Provider Surgery
DX: L72.0 Epidermal cyst (principal)
CPT/HCPCS: 99024

== ENCOUNTER → 2023-03-21 09:35 | Outpatient (BNVA) | payer MEDICAID, SELFPAY | PROVIDERS: PCP Internal Medicine; Visit Provider Surgery ==

== ENCOUNTER → 2023-03-26 08:30 | Outpatient (BNV) | payer MEDICAID, SELFPAY | PROVIDERS: PCP Internal Medicine; Visit Provider Radiology Diagnostic Radiology | DX: R92.321 Mammographic fibroglandular density, right breast (principal) | CPT/HCPCS: 77061; 77065 ==

== ENCOUNTER 2023-03-26 08:39 | Outpatient (REF) | payer MEDICAID, SELFPAY ==
--- NOTE | ~2023-03-26 | MM_ITS ---
EXAMINATION: MM DIAGNOSTIC DIGITAL BREAST TOMOSYNTHESIS, RIGHT CLINICAL INFORMATION: The patient is seen for recommended short interval follow-up of the lower inner quadrant right breast focal asymmetry noted originally on screening mammography from 06/20/2022 and subsequently evaluated with diagnostic mammography and ultrasound on 07/09/2022. COMPARISON: Mammography: This study is compared to multiple prior mammograms dating back to 2019. TECHNIQUE: Digital breast tomosynthesis is performed in both the craniocaudal and mediolateral oblique views along with computer-aided detection (CAD). Synthesized 2D images are generated from the tomosynthesis. Additional imaging includes a full lateral view of the right breast. FINDINGS: There are scattered areas of fibroglandular density (ACR BI-RADS breast composition Category b). There are no significant masses, abnormal calcifications, or other abnormalities. The previously noted focal asymmetry of the lower inner quadrant of the right breast is no longer conspicuous. It likely circulation sales representative a fatty replaced group of small, benign intramammary lymph nodes. Nonetheless, there are no mammographic signs of malignancy. The patient to return to annual screening mammography. MM/MM tomosynthesis diagnostic RT IMPRESSION: No mammographic evidence of malignancy. ASSESSMENT: BI-RADS BI-RADS 1 - Negative RECOMMENDATION: 1 year F/U This means that her next bilateral, routine screening mammogram is due in June 2023. Results were provided to the patient at time of visit by the technologist. This patient's information was entered into a reminder system with a target due date for their next mammogram.
== END 2023-03-26 08:40 | disposition home or self-care (01) ==
LOC: HO.MAMMO 08:39
PROVIDERS: PCP Internal Medicine; Visit Provider Internal Medicine
DX: N64.89 Other specified disorders of breast (principal)
CPT/HCPCS: 77061; 77065

== ENCOUNTER 2024-06-06 09:36 | Outpatient (REF) | payer SELFPAY ==
--- OUTSIDE RECORDS SUMMARY | 2024-06-06 09:38 | XMS_ITS | Encounter Summary ---
Author Organization [employer] Address [address] [place] [address] Care Team Providers Care Bpm Analyst Name Role Phone Nguyễn Ignacio MD Primary Care Prov ider Reason for Visit * Reason Onset Date Comments Medication Question 03/17/2024 Encounter Details Date Type Department Care Team ([facility] st Contact Info) Description 03/17/2024 Telephone [facility] MEDICINE [address] [place], [place] [id number] Nguyễn Ignacio MD [address] [place] [id number] Medication Question Social History Tobacco Use Types Packs/Day Years Used Date Smoking Tobacco: Never Passive Smoke Exposure: Never Smokeless Tobacco: Never Alcohol Use Standard Drinks/Week Comments Never 0 (1 standard drink = 0.6 oz pur e alcohol) Depression Answer Date Recorded Patient Health Questionnaire-9 Score 0 06/14/2022 Housing Stability Answer Date Recorded What is your housing situation today? I have dominik smiley 02/25/[address] you li ve. Do you have problems with any of the following? None of the above 02/25/2024 Food Insecurity Answer Date Recorded Within the past 12 months, y ou worried that your food would run out before you got money to buy more: Never True 02/25/2024 Within the past 12 months,th e food you bought just didn't last and you didn't have enough money to get more: Never True Transportation Answer Date Recorded In the past 12 months, has l ack of transportation kept you from medical appts, meetings, work or from getting things needed for daily living? No 02/25/2024 Utilities Answer Date Recorded In the past 12 months, has t he electric, gas, oil or water company threatened to shut off services in your home? No 02/25/2024 Depression Answer Date Recorded Patient Health Questionnaire-2 Score 0 06/14/2022 Internet Access Answer Date Recorded Internet Access Q1 Yes 02/25/2024 Internet Access Q2 Not on file 02/25/2024 Comments Unknown Sex and Gender Information Value Date Recorded Sex Assigned at Female 03/12/2022 10:28 AM EDT Legal Sex Female 10:28 AM EDT Gender Identity Female 03/12/2022 10:28 AM EDT Sexual Orientation Straight 03/12/2022 10 :28 AM EDT documented as of this encounter Miscellaneous Notes * Telephone Encounter - Go Taylor - 03/20/2024 12:02 PM EST TC from pt wanting update on weight loss medication Radha. * Telephone Encounter - [place] Lino - 03/17/2024 2:46 PM EST Tc from pt requesting status of weight loss medication discussed in office visit of 03/03. Contact at at [phone] documented in this encounter Plan of Treatment Not on file documented as of this encounter Visit Diagnoses Not on filedocumented in this encounter Additional Health Concerns Assessment Noted Time PHQ-9 Depression Total Score: 0 06/14/19 23 2:52 PM EST documented as of this encounter Care Teams Bpm Analyst Relationship Specialty Start Date End Date Nguyễn Ignacio MD [address] [place] [id number] PCP - General Internal Medicine 10/02/19 documented as of this encounter
--- OUTSIDE RECORDS SUMMARY | 2024-06-06 09:38 | XMS_ITS | Encounter Summary ---
Author Organization [employer] [facility] Address [address] [place] [address] [address] [place] [address] Care Team Providers Care Marble Installer Name Role Phone Nguyễn Ignacio MD Primary Care Prov ider Encounter Details Date Type Department Care Team (Late st Contact Info) Description 02/06/2023 Orders Only [facility] MEDICINE [address] [place] [address] Provider, Kavita, Social History Tobacco Use Types Packs/Day Years Used Date Smoking Tobacco: Never Passive Smoke Exposure: Never Smokeless Tobacco: Never Alcohol Use Standard Drinks/Week Comments Never 0 (1 standard drink = 0.6 oz pur e alcohol) Depression Answer Date Recorded Patient Health Questionnaire-9 Score 0 06/14/2022 Depression Answer Date Recorded Patient Health Questionnaire-2 Score 0 06/14/2022 Comments Unknown Sex and Gender Information Value Date Recorded Sex Assigned at Female 03/12/2022 10:28 AM EDT Legal Sex Female 10:28 AM EDT Gender Identity Female 03/12/2022 10:28 AM EDT Sexual Orientation Straight 03/12/2022 10 :28 AM EDT documented as of this encounter Plan of Treatment Not on file documented as of this encounter Procedures Procedure Name Priority Date/Time Associated Diagnosis Comments COLONOSCOPY Routine 01/05/2022 PAP/HPV Routine 12/01/2020 documented in this encounter Results * Hm Colonoscopy (01/05/2022) Historical Provider HEALTH MAINTENANCE Final Result * Pap Smear (12/01/2020) Historical Provider HEALTH MAINTENANCE Final Result documented in this encounter Visit Diagnoses Not on filedocumented in this encounter Additional Health Concerns Assessment Noted Time PHQ-9 Depression Total Score: 0 06/14/19 23 2:52 PM EST documented as of this encounter Care Teams Marble Installer Relationship Specialty Start Date End Date Nguyễn Ignacio MD [address] [place] [address] PCP - General Internal Medicine 10/02/19 documented as of this encounter
--- OUTSIDE RECORDS SUMMARY | 2024-06-06 09:38 | XMS_ITS | Clinical Summary ---
Author Organization [employer] Address [address] [place] [address] 7t [place] [address] Care Team Providers Care Foot Piece Assembler Name Role Phone Nguyễn Ignacio MD Primary Care Prov ider Allergies No known active allergies Medications meclizine (Antivert) 25 MG tablet TAKE 1 TABLET BY MOUTH FOUR TIMES DAILY NEEDED FOR DIZZINESS 08/24/19 22 Active ibuprofen 400 MG tablet Take 1 tablet by mouth every 4 (four) hours. 02/04/20 20 Active docusate sodium (Colace) 100 MG capsule TAKE 1 CAPSULE BY MOUTH TWICE DAILY NEEDED FOR CONSTIPATON 09/13/19 22 Active naproxen (Naprosyn) 500 MG tablet Take 1 tablet (500 mg) by mouth 2 times daily. 60 tablet 3 07/05/19 24 Active omeprazole (PriLOSEC) [address] capsuleIndications :Gastroesophageal reflux disease, unspecified whether esophagitis present TAKE 1 CAPSULE BY MOUTH ONCE DAILY 30MIN-1 HOUR BEFORE BREAKFAST 90 capsule 1 10/29/19 24 Active FeroSul 325 (65 Fe) MG tabletIndications: Anemia, unspecified type Take 1 tablet (325 mg) by mouth Once per day. 90 tablet 1 10/29/19 24 Active levothyroxine (Synthroid, Levoxyl) 50 MCG tabletIndications: Acquired hypothyroidism Take 1 tablet (50 mcg) by mouth before breakfast. 90 tablet 1 10/29/19 24 Active Semaglutide-Weight Management (Wegovy) 0.25 MG/0.5ML solution auto-injectorIndic ations:Morbid obesity (CMS/HCC) Inject 0.5 mL (0.25 mg) under the skin 1 (one) time per week. 2 mL 11 11/15/20 24 025 Active Active Problems Problem Noted Date Diagnosed Date Encounter for screening mamm ogram for malignant neoplasm of breast 06/14/2022 Assessment & Plan (06/14/2022 3:17 PM EST): Patient refers will get tested on 06/20/22, will follow up results Iron deficiency anemia due to chronic blood loss 06/14/2022 Assessment & Plan (06/14/2022 3:19 PM EST): Will order new labs for guidance of therapy Morbid obesity 06/14/2022 Assessment & Plan (03/03/2024 5:55 PM EDT): Will start on wegovy, risk vs benefits discussed, patient will benefit from decreasing risk for hypertension, decrease in joint pain, and decrease in cardiovascular disease Assessment & Plan (06/14/2022 3:20 PM EST): BMI 44.59, patient has tried diet and exercise without improvement in weight, will refer to bariatric surgery Elevated blood pressure reading 06/11/2022 Assessment & Plan (03/03/2024 5:55 PM EDT): Controlled, told to continue low sodium diet and exercise as tolerated Assessment & Plan (08/17/2022 5:09 PM EDT): Controlled, no medications will be added, continue lifestyle modifications, Bp reported 130/82 Assessment & Plan (06/14/2022 3:18 PM EST): Patient has not picked up the bp monitor, reinforced low sodium diet and exercise as tolerated, will follow up in 1 month Assessment & Plan (06/11/2022 4:52 PM EST): Has upcoming appt with PCP, at this moment will send cuff for pickup and monitoring. Acute pain of both knees 06/11/2022 Assessment & Plan (06/11/2022 4:52 PM EST): In the setting of chronic OA and morbid obesity, difficult to assess given body habitus, medial and lateral joint line tenderness, did rx toradol with good effect. Will send toradol for 5 days and referral to orthopedics. Hold off X rays. RTC as needed with PCP Acquired hypothyroidism 04/16/2018 Assessment & Plan (03/03/2024 5:55 PM EDT): New labs will be ordered for guidance of therapy, Assessment & Plan (08/17/2022 5:09 PM EDT): Clinically and chemically euthyroid, continue same dose of levothyroxine Assessment & Plan (06/14/2022 3:18 PM EST): Will order new labs for guidance of therapy Bursitis of shoulder 04/16/2018 Epilepsy 04/16/2018 Gastroesophageal reflux disease without esophagi tis 04/16/2018 Mood disorder 04/16/2018 Encounters Date Type Department Care Team Description 04/03/2024 Telephone [facility] MEDICINE [address] [place] [address] Nguyễn Ignacio MD Med Refill; Prior Authorization 03/27/2024 Orders Only [facility] CH[facility] MED & PEDS [address] [place], [place] [phone] Nguyễn Ignacio MD Morbid obesity ([facility]) (Primary Dx) 03/17/2024 Telephone [facility] MEDICINE [address] [place] [address] Nguyễn Ignacio MD Medication Question from Last 3 Months Immunizations Name Administration Dates Next Due Influenza injectable quadriv alent IIV4 with preservative 03/12/2016,02/11/2015 Influenza injectable quadriv alent preservative free 01/30/2023,08/24/2021,02/04/2020,2018,01/29/2018 MMR 02/04/2020 Tdap 02/11/2015 Varicella 02/04/2020 Zoster, Recombinant 11/23/2021,09/21/2021 Social History Tobacco Use Types Packs/Day Years Used Date Smoking Tobacco: Never Passive Smoke Exposure: Never Smokeless Tobacco: Never Tobacco Cessation:Counseling Given: Not Answered Alcohol Use Standard Drinks/Week Comments Never 0 [...] Orientation Straight 03/12/2022 10 :28 AM EDT Last Filed Vital Signs Vital Sign Reading Time Taken Comments Blood Pressure 113/78 03/03/2024 8:28 AM EDT Pulse 72 03/03/2024 8:28 AM EDT Temperature 36.3 ??C (97.3 ??F) 03/03/2024 8:28 AM ED T Respiratory Rate 14 03/03/2024 8:28 AM EDT Oxygen Saturation 100% 03/03/2024 8:28 AM EDT Inhaled Oxygen Concentration - - Weight 112 kg (247 lb) 03/03/2024 8:28 AM EDT Height 163 cm (5' 4.17 ) 03/03/2024 8:28 AM EDT Body Mass Index 42.17 03/03/2024 8:28 AM EDT Plan of Treatment Health Maintenance Due Date Last Done Comments CT Colonography 1970 FIT DNA/Cologuard 1970 FIT 1970 FOBT 1970 Sigmoidoscopy 1970 Alcohol/Substance Use Screening 1982 Hepatitis B Vaccines (1 of 3 - 19+ 3-dose series) 1989 Depression Screening 06/14/2023 06/14/2022, 06/14/19 23 COVID-19 Vaccine (2 - season) 2024 08/20/2020 Influenza Vaccine (#1) 2024 , 08/24/2021, 02/04/2020, Additional history exists DTaP/Tdap/Td Vaccines (2 - Td or Tdap) 02/11/2025 02/11/2015 SDOH Screening 02/24/2025 02/25/2024 Tobacco Screening 02/24/2025 02/25/2024 Mammogram 03/26/2025 03/26/2023, 02/0 09/2020, 06/15/2019, Additional history exists Pap Smear 05/23/2025 05/23/2022, 12/01/2020 Colonoscopy 01/05/2027 01/05/2022 Colorectal Cancer Screening 01/05/2027 Cervical Cancer Screening 05/23/2027 HPV/Cotest 05/23/2027 05/23/2022, 07/2 06/2020, 12/01/2020 Lipid Panel 08/10/2027 08/09/2022, 02/0 10/2022, 11/03/2021 RSV Patients and Patients Aged 60 years or older (1 - 1-dose 75+ series) 2045 Zoster Vaccines Completed 11/23/2021, 09/21/2021 HIV Screening Completed 06/18/2022 Hepatitis C Screening Completed 06/18/2022 HIB Vaccines Aged Out No longer eligi ble based on patient's age to complete this topic HPV Vaccines Aged Out No longer eligi ble based on patient's age to complete this topic Hepatitis A Vaccines Aged Out No long er eligible based on patient's age to complete this topic IPV Vaccines Aged Out No longer eligi ble based on patient's age to complete this topic Meningococcal Vaccine Aged Out No daniela yeimy eligible based on patient's age to complete this topic Pneumococcal Vaccine: Pediatrics (0 to 5 Years) and At-Risk Patients (6 to 64 Years) Aged Out No longer eligible based on patient's age to complete this topic RSV under 20 months Aged Out No longe r eligible based on patient's age to complete this topic Rotavirus Vaccines Aged Out No longer eligible based on patient's age to complete this topic Procedures Procedure Name Priority Date/Time Associated Diagnosis Comments BI MAMMOGRAM DIAGNOSTIC TOMOSYNTHESIS RIGHT Routine 03/26/2023 9:05 AM EST LIPID PANEL, STANDARD Routine 08/09/2022 10:40 AM EDT HEPATITIS C AB W/REFL TO HCV RNA, QN, PCR Routine 06/18/2022 8:42 AM EST Morbid obesity (CMS/HCC) HIV 1 RNA, QN PCR W/RFL THOMPSON (RTI,PI,INTEGRASE) Routine 06/18/2022 8:42 AM EST Morbid obesity (CMS/HCC) HPV MRNA E6/E7 REFLEX TO HPV 16, 18/45 Routine 05/23/2022 4:26 PM EST PAP SMEAR Routine 05/23/2022 4:26 PM EST HM COLONOSCOPY Routine 01/05/2022 from Last 3 Months or Most Recently Relevant to Health Maintenance Results * BI Mammogram Diagnostic Tomosynthesis Right (03/26/2023 9:05 AM EST) Anatomical Region Laterality Modality Breast Right Mammography 03/26/2023 9:05 AM EST Narrative 03/26/2023 9:41 AM EST ? [facility] ? [address] ?[place] [address] ? Mammography Report ? Signed ? Patient: Brandy,Mercedez ?MR#: [id number] ? : 1970 ?Acct:[id number] ? Age/Sex: 52 / F ?ADM Date: 11/14/23 ? Loc: HO.MAMMO ? Attending Dr: Nguyễn Gurrola MD ? Ordering Physician: Nguyễn Ignacio MD ?Res ?? ults: 1Negative ? Date of Service: 03/26/23 ?Follow Up: 1 Year From Orig ?? inal Mammogram ? Procedure(s): MM tomosynthesis diagnostic RT ?? Accession Number(s): [id number] ? cc: Nguyễn Ignacio MD ? EXAMINATION: ?? MM DIAGNOSTIC DIGITAL BREAST TOMOSYNTHESIS, RIGHT ? CLINICAL INFORMATION: ? The patient is seen for recommended short interval follow-up of the ?? lower inner quadrant right breast focal asymmetry noted originally on ?? screening mammography from 06/20/2022 and subsequently evaluated with ?? diagnostic mammography and ultrasound on 07/09/2022. ? COMPARISON: ?? Mammography: This study is compared to multiple prior mammograms dating ?? back to 2019. ? TECHNIQUE: ?? Digital breast tomosynthesis is performed in both the craniocaudal and ?? mediolateral oblique views along with computer-aided detection (CAD). ?? Synthesized 2D images are generated from the tomosynthesis. Additional ?? imaging includes a full lateral view of the right breast. ? FINDINGS: ?? There are scattered areas of fibroglandular density (ACR BI-RADS breast ?? composition Category b). ? There are no significant masses, abnormal calcifications, or other ?? abnormalities. ?? The previously noted focal asymmetry of the lower inner quadrant of the ?? right breast is no longer conspicuous. ?? It likely event marketing representative a fatty replaced group of small, benign ?? intramammary lymph nodes. Nonetheless, there are no mammographic signs ?? of malignancy. The patient to return to annual screening mammography. ? MM/MM tomosynthesis diagnostic RT ?? IMPRESSION: ?? No mammographic evidence of malignancy. ? ASSESSMENT: ? BI-RADS BI-RADS 1 - Negative ? RECOMMENDATION: ?? 1 year F/U ?? This means that her next bilateral, routine screening mammogram is due ?? in June 2023. ?? Results were provided to the patient at time of visit by the ?? technologist. ? This patient's information was entered into a reminder system with a ?? target due date for their next mammogram. ? Dictated By: ?Mami Louise MD ? Signed By: ?<Electronically signed by Mami Louise MD in OV> ? 03/26/23 0937 ? DD/ 0905 ? TD/TT: ? Merry Go Round Attendant: ? Procedure Note Mo, Image - 03/26/2023 [facility] [address] [place] [address] Mammography Report Signed Patient: Maged Nava#: [id number] : 1970Acct:[id number] Age/Sex: 52 / FADM Date: 03/26/23 Loc: MAMMO Attending Dr: Nguyễn Gurrola MD Ordering Physician: Nguyễn Ignacio ults: 1Negative Date of Service: 03/26/23Follow Up: 1 Year From Orig inal Mammogram Procedure(s): MM tomosynthesis diagnostic RT Accession Number(s): [id number] cc: Nguyễn Ignacio MD EXAMINATION: MM DIAGNOSTIC DIGITAL BREAST TOMOSYNTHESIS, RIGHT CLINICAL INFORMATION: The patient is seen for recommended short interval follow-up of the lower inner quadrant right breast focal asymmetry noted originally on screening mammography from 06/20/2022 and subsequently evaluated with diagnostic mammography and ultrasound on 07/09/2022. COMPARISON: Mammography: This study is compared to multiple prior mammograms dating back to 2019. TECHNIQUE: Digital breast tomosynthesis is performed in both the craniocaudal and mediolateral oblique views along with computer-aided detection (CAD). Synthesized 2D images are generated from the tomosynthesis. Additional imaging includes a full lateral view of the right breast. FINDINGS: There are scattered areas of fibroglandular density (ACR BI-RADS breast composition Category b). There are no significant masses, abnormal calcifications, or other abnormalities. The previously noted focal asymmetry of the lower inner quadrant of the right breast is no longer conspicuous. It likely event marketing representative a fatty replaced group of small, benign intramammary lymph nodes. Nonetheless, there are no mammographic signs of malignancy. The patient to return to annual screening mammography. MM/MM tomosynthesis diagnostic RT IMPRESSION: No mammographic evidence of malignancy. ASSESSMENT: BI-RADS BI-RADS 1 - Negative RECOMMENDATION: 1 year F/U This means that her next bilateral, routine screening mammogram is due in June 2023. Results were provided to the patient at time of visit by the technologist. This patient's information was entered into a reminder system with a target due date for their next mammogram. Dictated By: Mami Louise MD Signed By: <Electronically signed by Mami Louise MD in OV> 03/26/2337 DD/ 4 TD/TT: Merry Go Round Attendant: Nguyễn Gurrola MD IM BI PROCEDURES Edited Result - Final * Lipid Panel, Standard (08/09/2022 10:40 AM EDT) Triglycerides 66 mg/dL [facility] Comment:Desirable Triglyceri de: less than 150 mg/dLBorderline High Triglyceride 150-199 mg/dLHigh Triglyceride: 200-499 mg/dLVery High Triglyceride: greater than or equal to 5OO mg/dL Cholesterol 164 mg/dL [facility] Comment:Desirable Cholestero l: less than 200 mg/dLBorderline High Cholesterol: 200-239 mg/dLHigh Cholesterol: greater than 239 mg/dL LDL Cholesterol Calculated 107 mg/dl [facility] Comment:Desirable LDL: less than 100 mg/dLNear Optimal/Above Optimal LDL: 110- 129 mg/dLBorderline High LDL: 130-159 mg/dLHigh LDL: 160-189 mg/dLVery High LDL: greater than or equal to 190 mg/dL HDL Cholesterol 44 mg/dL [facility] Comment:Desirable HDL: great er than 40 mg/dL Note: This HDL assay may give artificially low results in patients with liver disease. 08/09/2022 10:4 0 AM EDT 08/09/2022 10:42 AM EDT [facility] External Provider LAB BLO OD ORDERABLES Final Result Performing Organization Address City/[facility]/ZIP Co de Phone Number [facility] [address] [place] [phone] * HIV-1 RNA, Quantitative, Real-Time PCR with Reflex to Genotype (RTI, PI, Integrase) (06/18/2022 8:42 AM EST) Pathologist [facility] HIV 1 RNA, QN PCR NOT DETECTED copies/mL [facility], HIV 1 RNA, QN PCR NOT DETECTED Log copies/mL [facility], Comment: REFERENCE RANGE: NOT DETECTED copies/mL ?NOT DETECTED ??Log copies/mL This test was performed using Real-Time Polymerase Chain Reaction. Reportable range is 20 to 10,000,000 copies/mL (1.30-7.00 Log copies/mL). 06/18/2022 8:42 AM EST 06/18/2022 8:42 AM EST Narrative [facility] - 06/21/2022 9:00 AM EST FASTING:YES FASTING: YES Nguyễn Gurrola MD LAB BLOOD ORDERABL ES Final Result Performing Organization Address City/[facility]/ZIP Co de Phone Number [facility] [address] [place] [address], [place] [address] [facility], [address] [place] [address] * Hepatitis C Antibody with Reflex to HCV, RNA, Quantitative, Real-Time PCR (06/18/2022 8:42 AM EST) Hepatitis C Antibody NON-REACT JILL NON-REACT JILL [facility] [place] OtherInbox Index 0.06 <1.00 [facility] OtherInbox Comment: HCV antibody was non-reactive. There is no laboratory evidence of HCV infection. In most cases, no further action is required. However, if recent HCV exposure is suspected, a test for HCV RNA (test code 29759) is suggested. For additional information please refer to http://education.Geodynamics/faq/JHK69i9 (This link is being provided for informational/ educational purposes only.) Blood Venous blood specimen / Unknown 06/18/2022 8:42 AM EST 06/18/2022 8:42 AM EST Narrative [facility] - 06/21/2022 9:00 AM EST FASTING:YES FASTING: YES Nugyễn Gurrola MD LAB BLOOD ORDERABL ES Final Result [facility] [address], [place] [address] [facility] [place] OtherInbox 200 [facility], (Nl2) [place] [address] * HPV mRNA E6/E7 w/Reflex to HPV Genotypes 16, 18/45 (05/23/2022 4:26 PM EST) HPV nRNA E6/E7 Not Detected Not Detected [facility] Comment:Methodology: Transcr iption-Mediated AmplificationThis assay detects E6/E7 viral messenger RNA (mRNA) from 14high-risk HPV types (16,18,31,33,35,39,45,51,52,56,58,59,66,68).Cervical sources are required for HPV testing.If a vaginal source from a patient who has had atotal hysterectomy with removal of cervix wassubmitted, please contact the testing laboratoryfor alternative testing options.For additional information, please refer tohttp://education.Geodynamics/faq/FCO809i3(This link if provided for information/educational purposes only.)THIS TEST WAS PERFORMED AT:[facility] [address] ([facility])[place] [address]AZTWYLILLIAN SINGH MD HPV mRNA E6/E7 [facility] HPV 16 RNA TNP [facility] HPV 18/45 RNA [facility] 05/23/2022 4:26 PM EST 05/24/2022 9:45 AM EST [facility] External Provider LAB CYT OLOGY ORDERABLES Final Result Performing Organization Address City/State/[facility] de Phone Number [facility] [address] [place] [phone] * Pap Smear (05/23/2022 4:26 PM EST) 05/23/2022 4:26 PM EST 05/24/2022 9:45 AM EST Narrative [facility] - 06/03/2022 11:52 AM EST ----- ------- Name: Mercedez Nava ? Age/Sex: 51/F ? : 1970 Unit#: [id number] ?? Attend Dr: Douglas Ellison MD ?Re05/23/22 ?Status: DEP REF ? Location: HO.LNP ?Disch: ? ----- ------- SPEC : [id number] ?RECD: 05/24/22 ? STATUS: ??SOUT ? REQ NUM: [id number] ? MUMTAZ: 05/23/22 ? SUBM DR: Douglas Ellison MD ? ENTERED: ??05/24/22 ?SP TYPE: Pap Smr ?OTHR DR: Nguyễn Ignacio MD ORDERED: ??Pap Smear ? Interpretation ?? Satisfactory for evaluation. ?? No endocervical cells seen. ?? Negative for intraepithelial lesion or malignancy. ? HPV mRNA E6/E7: ? NOT DETECTED ? This assay detects E6/E7 viral messenger RNA (mRNA) from 14 high-risk HPV types (16, 18, ?? 31, 33, 35, 39, 45, 51, 52, 56, 58, 59, 66, 68) ? HPV testing performed by [facility], [place], [place]. ??See reference laboratory ?? portion of the EMR for entire report. ?Clinical Information LMP: No menses Previous PAP test: 12/02/20, Abnormal Other history: Ascus ? Material Received ?? ThinPrep-Cervical Copies To: ?? Nguyễn Ignacio MD ?? [address] ?? [place] [address] ? Douglas Ellison MD ?? [address] [place] [facility] ?? [place] [address] ?? [phone] ----- ------- Signed (signature on file) Enma Cornejo Manuel 06/03/22 1152 ? ----- ------- ? END OF REPORT ? us [facility] External Provider LAB CYT OLOGY ORDERABLES Final Result [facility] [address] [place], [place] [phone] * Hm Colonoscopy (01/05/2022) us Historical Provider HEALTH MAINTENANCE Final Result from Last 3 Months or Most Recently Relevant to Health Maintenance Insurance * Guarantor: Mercedez Nava Account Type Relation to Patient Date of Phone Billing Address Personal/Family Self [address] Care Teams Foot Piece Assembler Relationship Specialty Start Date End Date Nguyễn Ignacio MD [address] [place] [address] [place] PCP - General Internal Medicine 10/02/19
[2024-06-06 09:57] LABS: MANUAL DIFF FLAG NO
[2024-06-06 10:08] LABS: Basophils Absolute Auto 0.1 X10*3/uL (0.0-0.2); Basophils Percent Auto 1.3 % (0-2); Eosinophils Absolute Auto 0.1 X10*3/uL (0.0-0.4); Eosinophils Percent Auto 1.4 % (0-4); Imm Gran Abs Auto 0.02 X10*3/uL (0.00-0.03); Imm Gran Pct Auto 0.3 % (0.0-0.4); Lymphocytes Absolute Auto 2.8 X10*3/uL (1.2-4.9); Lymphocytes Percent Auto 39.4 % (20-40); Mean Corpuscular HGB Conc 32.6 g/dl (31.0-35.0); Mean Corpuscular Hemoglobin 30.1 pg (27.0-33.0); Mean Corpuscular Volume 92.5 fL (80.0-98.0); Mean Platelet Volume 9.8 fL (9.4-12.3); Monocytes Absolute Auto 0.4 X10*3/uL (0.1-1.2); Monocytes Percent Auto 5.2 % (2-11); Neutrophils Absolute Auto 3.7 x10*3/uL (2.0-8.3); Neutrophils Percent Auto 52.4 % (45-73); Platelet Count 286 X10*3/uL (160-400); Red Blood Count 4.65 X10*6/uL (4.20-5.50); White Blood Count 7.1 X10*3/uL (4.8-10.8)
[2024-06-06 11:24] LABS: Estimated Average Glucose 111 mg/dL; Hemoglobin A1C 134.8306 umol/L; Hemoglobin A1c % 5.5 % (<6.0); Total Hemoglobin (HGBA1C) 3647.6702 umol/L
[2024-06-06 11:55] LABS: Alanine Aminotransferase 30 U/L (0-31); Albumin Level 3.9 g/dL (3.5-5.0); Alkaline Phosphatase 99 U/L (39-117); Anion Gap 10 (12-20); Aspartate Amino Transferase 26 U/L (5-31); Bilirubin Total 0.4 mg/dL (0.0-1.0); Blood Urea Nitrogen 13 mg/dL (9-16); Calcium 9.6 mg/dL (8.4-10.2); Carbon Dioxide 29 mmol/L (22-29); Chloride 108 mmol/L (96-108); Cholesterol 166 mg/dL (<200); Estimated Glomerular Filt Rate > 60; Glucose Random 82 mg/dL (60-115); HDL Cholesterol 48 mg/dL (>40); Iron 79 mcg/dL (30-160); LDL Cholesterol Calculated 101 mg/dL (<100); Percent Iron Saturation 32 % (15-50); Potassium 4.6 mmol/L (3.3-5.1); Sodium 142 mmol/L (135-145); Total Iron Binding Capacity 245 mcg/dL (228-428); Total Protein 7.7 g/dL (6.5-8.0); Triglycerides 86 mg/dL (<150); Unsaturated Iron Binding 166 ug/dL
[2024-06-06 12:10] LABS: TSH reflex Free T4 3.14 uIU/mL (0.32-4.0)
== END 2024-06-06 09:37 | disposition home or self-care (01) ==
LOC: HO.LAB 09:36
PROVIDERS: PCP Internal Medicine; Visit Provider Internal Medicine
DX: R03.0 Elevated blood-pressure reading, without diagnosis of hypertension (principal); E03.9 Hypothyroidism, unspecified; D50.0 Iron deficiency anemia secondary to blood loss (chronic); E66.01 Morbid (severe) obesity due to excess calories
CPT/HCPCS: 36415; 80053; 80061; 83036; 83540; 84443; 85025

== ENCOUNTER 2025-02-20 07:53 | Outpatient (REF) | payer MEDICAID, SELFPAY ==
--- OUTSIDE RECORDS SUMMARY | 2025-02-20 07:55 | XMS_ITS | Encounter Summary ---
Author Organization [employer] Address [address] [facility] 7 [place] [address] Care Team Providers Care Multiple Drum Sander Name Role Phone Nguyễn Ignacio MD Primary Care Prov ider Reason for Visit * Reason Onset Date Comments Medication Question 03/17/2024 Encounter Details Date Type Department Care Team ([facility] st Contact Info) Description 03/17/2024 Telephone [facility] MEDICINE [address] [place] [address] Nguyễn Ignacio MD [address] [facility] [place] [address] Medication Question Social History Tobacco Use Types [...] office visit of 03/03. Contact at at [phone] documented in this encounter Plan of Treatment Not on file documented as of this encounter Visit Diagnoses Not on filedocumented in this encounter Additional Health Concerns Assessment Noted Time PHQ-9 Depression Total Score: 0 06/14/19 23 2:52 PM EST documented as of this encounter Care Teams Multiple Drum Sander Relationship Specialty Start Date End Date Nguyễn Ignacio MD [address] [place] [phone] PCP - General Internal Medicine 10/02/19 documented as of this encounter
--- OUTSIDE RECORDS SUMMARY | 2025-02-20 07:55 | XMS_ITS | Encounter Summary ---
Author Organization [employer] Address [address] [facility] [address] [place] [address] Care Team Providers Care Laundry Pricing Clerk Name Role Phone Nguyễn Ignacio MD Primary Care Prov ider Reason for Visit * Reason Comments Med Refill Encounter Details Date Type Department Care Team ([facility] st Contact Info) Description 09/04/2024 Refill [facility] MED & PEDS [address] [place] [address] Nguyễn Ignacio MD [address] [place] [address] Gastroesophageal reflux disease, unspecified whether esophagitis present; Acquired hypothyroidism Social History Tobacco Use Types Packs/Day Years [...] Date Recorded Patient Health Questionnaire-2 Score 0 07/06/2024 Internet Access Answer Date Recorded Internet Access [...] documented as of this encounter Visit Diagnoses Diagnosis Gastroesophageal reflux disease, unspecified whether esophagitis present Acquired hypothyroidism Unspecified hypothyroidism documented in this encounter Additional Health Concerns Assessment Noted Time PHQ-9 Depression Total Score: 0 06/14/19 23 2:52 PM EST documented as of this encounter Care Teams Laundry Pricing Clerk Relationship Specialty Start Date End Date Nguyễn Ignacio MD [address] [place] [phone] PCP - General Internal Medicine 10/02/19 documented as of this encounter
--- OUTSIDE RECORDS SUMMARY | 2025-02-20 07:55 | XMS_ITS | Encounter Summary ---
Author Organization [employer] Address [address] [place] [address] 7[address] [place] [address] Care Team Providers Care Bakery Products Checker Name Role Phone Nguyễn Ignacio MD Primary Care Prov ider Encounter Details Date Type Department Care Team (Late st Contact Info) Description 02/06/2023 Orders Only [facility] MEDICINE [address] [place] [address] Provider, Kavita, Social History Tobacco Use Types [...] 12/01/2020 documented in this encounter Results * Colonoscopy (01/05/2022) Historical Provider HEALTH MAINTENANCE Final Result * Pap Smear (12/01/2020) Historical Provider HEALTH MAINTENANCE Final Result documented in this encounter Visit Diagnoses Not on filedocumented in this encounter Additional Health Concerns Assessment Noted Time PHQ-9 Depression Total Score: 0 06/14/19 23 2:52 PM EST documented as of this encounter Care Teams Bakery Products Checker Relationship Specialty Start Date End Date Nguyễn Ignacio MD [address] [place] [address] PCP - General Internal Medicine 10/02/19 documented as of this encounter
--- OUTSIDE RECORDS SUMMARY | 2025-02-20 07:55 | XMS_ITS | Clinical Summary ---
Author Organization [employer] Address [address] [place] [address] [address] [place] [address] Care Team Providers Care Sledger Name Role Phone Nguyễn Ignacio MD Primary [...] mouth 2 times daily. 60 tablet 3 07/06/19 25 Active levothyroxine (Synthroid, Levoxyl) 50 MCG tabletIndications: Acquired hypothyroidism Take 1 tablet (50 mcg) by mouth before breakfast. 90 tablet 1 09/08/19 25 Active omeprazole (PriLOSEC) [address] capsuleIndications :Gastroesophageal reflux disease, unspecified whether esophagitis present TAKE 1 CAPSULE BY MOUTH ONCE DAILY 30MIN-1 HOUR BEFORE BREAKFAST 90 capsule 1 09/08/19 25 Active phentermine 15 MG capsule Take 1 capsule (15 mg) by mouth before breakfast. 30 capsule 2 12/09/19 25 025 Active topiramate (Topamax) 50 MG tablet Take 1 tablet (50 mg) by mouth Once per day. 60 tablet 3 12/09/19 25 Active Active Problems Problem Noted Date Diagnosed Date Encounter for screening mamm ogram for malignant neoplasm of breast 06/14/2022 Assessment & Plan (06/14/2022 3:17 PM EST): Patient refers will get tested on 06/20/22, will follow up results Iron deficiency anemia due to chronic blood loss 06/14/2022 Assessment & Plan (09/07/2024 9:41 AM EDT): Her iron levels and hgb are stable, will discontinue treatment, reevaluate in 3- 4 months Assessment & Plan (06/14/2022 3:19 PM EST): Will order new labs for guidance of therapy Morbid obesity ([facility]) 06/14/2022 Assessment & Plan (12/08/2024 10:06 AM EDT): On phentermine and topamax, no changes will be made, keep low calorie diet and exercise as tolerated, follow up in 3 months Assessment & Plan (09/07/2024 9:40 AM EDT): Has lost over 10 lbs, she has been off phentermine, will renew treatment, call back if any side effect Assessment & Plan (07/06/2024 9:38 AM EST): Wegovy was denied, will start phentermine and topamax, risk vs benefits discussed, follow up in 2 months Assessment & Plan (03/03/2024 5:55 PM EDT): [...] PCP Acquired hypothyroidism 04/16/2018 Assessment & Plan (02/12/2025 11:14 AM EDT): Will order new tsh for guidance of therapy, clinically euthyroid Assessment & Plan (12/08/2024 10:04 AM EDT): Will renew levothyroxine, she is clinically euthyroid, new labs will be ordered for guidance Assessment & Plan (09/07/2024 9:39 AM EDT): Clinically, chemically euthyroid, no changes will be made, follow up in 3 moths Assessment & Plan (07/06/2024 9:35 AM EST): On levothyroxine, chemically stable, continue same treatmetn Assessment & Plan (03/03/2024 5:55 PM EDT): New labs will be ordered for guidance of therapy, Assessment & Plan (08/17/2022 5:09 PM EDT): Clinically and chemically euthyroid, continue same dose of levothyroxine Assessment & Plan (06/14/2022 3:18 PM EST): Will order new labs for guidance of therapy Bursitis of shoulder 04/16/2018 Epilepsy ([facility]) 04/16/2018 Gastroesophageal reflux disease without esophagi tis 04/16/2018 Assessment & Plan (07/06/2024 9:32 AM EST): Continue with PPI as needed, continue lifestyle changes, follow up as needed Mood disorder 04/16/2018 Encounters Date Type Department Care Team Description 02/12/2025 10:30 AM EDT Telemedicine [facility] [address] [place] [address] Nguyễn Ignacio MD Acquired hypothyroidism (Primary Dx); Encounter for screening mammogram for malignant neoplasm of breast 02/12/2025 Travel 02/11/2025 Telephone [facility] [address] [place] [address] Nguyễn Ignacio MD chart prep 12/08/2024 9:30 AM EDT Telemedicine [facility] [address] [place] [address] Nguyễn Ignacio MD Acquired hypothyroidism (Primary Dx); Morbid obesity ([facility]) 12/08/2024 Travel from Last 3 Months Immunizations Immunization Administration Dates Next Due Influenza injectable quadriv [...] 72 03/03/2024 8:28 AM EDT Temperature 36.3 C (97.3 F) 03/03/2024 8:28 AM EDT Respiratory Rate 14 03/03/2024 8:28 AM EDT Oxygen Saturation 100% 03/03/2024 8:28 AM EDT Inhaled Oxygen Concentration - - Weight 102 kg (225 lb) 02/12/2025 10:24 AM EDT Height 163 cm (5' 4.17 ) 03/03/2024 8:28 AM EDT Body Mass Index 38.42 03/03/2024 8:28 AM EDT Plan of Treatment Health Maintenance Due Date Last Done Comments CT Colonography 1970 FIT DNA/Cologuard 1970 FIT 1970 FOBT 1970 Sigmoidoscopy 1970 Hepatitis B Vaccines (1 of 3 - 19+ 3-dose series) 1989 Pneumococcal Vaccine: 50+ Years (1 of 1 - PCV) 2020 COVID-19 Vaccine (2 - season) 2025 08/20/2020 Influenza Vaccine (#1) 2025 , 08/24/2021, 02/04/2020, Additional history exists DTaP/Tdap/Td Vaccines (2 - Td or Tdap) 02/11/2025 02/11/2015 SDOH Screening 02/24/2025 02/25/2024 Mammogram 03/26/2025 03/26/2023, 0209/2020, 06/15/2019, Additional history exists Pap Smear 05/23/2025 05/23/2022, 12/01/2020 Depression Screening 07/06/2025 07/06/2024, 06/14/19 23 Tobacco Screening 07/06/2025 07/06/2024 Alcohol/Substance Use Screening 09/07/2025 09/07/2024 Disability Screening 02/12/2026 02/12/2025 Colonoscopy 01/05/2027 01/05/2022 Colorectal Cancer Screening 01/05/2027 Cervical Cancer Screening 05/23/2027 HPV/Cotest 05/23/2027 05/23/2022, 07/2 06/2020, 12/01/2020 Lipid Panel 06/06/2029 06/06/2024, 033 , 06/18/2022, Additional history exists RSV Patients and Patients Aged 60 years [...] patient's age to complete this topic Meningococcal B Vaccine Aged Out No l onger eligible based on patient's age to complete [...] Procedure Name Priority Date/Time Associated Diagnosis Comments LIPID PANEL, STANDARD Routine 06/06/2024 9:56 AM EST Elevated blood pressure reading BI MAMMOGRAM DIAGNOSTIC TOMOSYNTHESIS RIGHT Routine 03/26/2023 9:05 AM EST HEPATITIS C AB W/REFL TO HCV RNA, [...] Recently Relevant to Health Maintenance Results * (ABNORMAL) Lipid Panel, Standard (06/06/2024 9:56 AM EST) Triglycerides 86 <150 mg/dL [facility] Comment:Desirable Triglyceri de: less than 150 mg/dLBorderline High Triglyceride 150-199 mg/dLHigh Triglyceride: 200-499 mg/dLVery High Triglyceride: greater than or equal to 5OO mg/dL Cholesterol 166 <200 mg/dL [facility] Comment:Desirable Cholestero l: less than 200 mg/dLBorderline High Cholesterol: 200-239 mg/dLHigh Cholesterol: greater than 239 mg/dL LDL Cholesterol Calculated 101(H) <100 mg/dL [facility] Comment:Desirable LDL: less than 100 mg/dLNear Optimal/Above Optimal LDL: 110- 129 mg/dLBorderline High LDL: 130-159 mg/dLHigh LDL: 160-189 mg/dLVery High LDL: greater than or equal to 190 mg/dL HDL Cholesterol 48 >40 mg/dL [facility] Comment:Desirable HDL: great er than 40 mg/dL Note: This HDL assay may give artificially low results in patients with liver disease. Blood Venous blood specimen / Unknown 06/06/2024 9:56 AM EST 06/06/2024 9:56 AM EST us Nguyễn Gurrola MD LAB BLOOD ORDERABL ES Final Result Performing Organization Address City/State/RUST Co de Phone Number [facility] [address] [place] [phone] * BI Mammogram Diagnostic Tomosynthesis Right (03/26/2023 9:05 AM EST) Anatomical Region Laterality Modality Breast Right Mammography 03/26/2023 9:05 AM EST Narrative 03/26/2023 9:41 AM EST [facility] [address] [place] [address] Mammography Report Signed Patient: Mercedez Nava MR#: [id number] : 1970 Acct:[id number] Age/Sex: 52 / F ADM Date: 03/26/23 Loc: [facility] Attending Dr: Nguyễn Gurrola MD Ordering Physician: Nguyễn Ignacio MD Res ults: 1Negative Date of Service: 03/26/23 Follow Up: 1 Year From Orig inal Mammogram Procedure(s): MM tomosynthesis diagnostic RT Accession Number(s): [id number] cc: Nguyễn Ignacio MD EXAMINATION: MM DIAGNOSTIC [...] breast is no longer conspicuous. It likely packaging sales representative a fatty replaced group of small, [...] MD in OV> 03/26/2337 DD/ 4 TD/TT: Cut Off Operator Scorer: Procedure Note Donotuseinterpreter, Image - 03/26/2023 [facility] [address] [place] [address] Mammography Report Signed Patient: Maged Nava#: [id number] : 1970Acct:[id number] Age/Sex: 52 / FADM Date: 03/26/23 Loc: [facility] Attending Dr: Nguyễn Gurrola MD Ordering Physician: Nguyễn Ignacio ults: 1Negative Date of Service: 03/26/23Follow Up: 1 Year From Orig inal Mammogram Procedure(s): MM tomosynthesis diagnostic RT Accession Number(s): [id number] cc: Nguyễn Ignacio MD EXAMINATION: MM DIAGNOSTIC [...] breast is no longer conspicuous. It likely packaging sales representative a fatty replaced group of small, [...] signed by Mami Louise MD in OV> 03/26/23 0937 DD/ 4 TD/TT: Cut Off Operator Scorer: Nguyễn Gurrola MD [facility] BI PROCEDURES Edited Result - Final * HIV-1 RNA, Quantitative, Real-Time PCR with Reflex to Genotype (RTI, PI, Integrase) (06/18/2022 8:42 AM EST) HIV 1 RNA, QN PCR NOT DETECTED copies/mL [facility]/Mayco solomon [facility], HIV 1 RNA, QN PCR NOT DETECTED Log copies/mL [facility]/N neha [facility], Comment: REFERENCE RANGE: NOT DETECTED copies/mL NOT DETECTED Log copies/mL This test was performed using Real-Time Polymerase Chain Reaction. Reportable range is 20 to 10,000,000 copies/mL (1.30-7.00 Log copies/mL). 06/18/2022 8:42 AM EST 06/18/2022 8:42 AM EST Narrative [facility] - 06/21/2022 9:00 AM EST FASTING:YES FASTING: YES Nguyễn Gurrola MD LAB BLOOD ORDERABL ES Final Result Performing Organization Address [facility] Phone Number [facility] [address] [facility], [place] [address] [facility], [address] [place] [address] * Hepatitis C Antibody with Reflex to HCV, RNA, Quantitative, Real-Time PCR (06/18/2022 8:42 AM EST) Hepatitis C Antibody NON-REACT JILL NON-REACT JILL [facility] [place] [facility] Index 0.06 <1.00 [facility] Comment: HCV antibody was non-reactive. There is no laboratory evidence of HCV infection. In most cases, no further action is required. However, if recent HCV exposure is suspected, a test for HCV RNA (test code 60512) is suggested. For additional information please refer to http://education.[address] [employer]alerTrack/faq/LBH59d1 (This link is being provided for informational/ educational purposes only.) Blood Venous blood specimen / Unknown 06/18/2022 8:42 AM EST 06/18/2022 8:42 AM EST Narrative [facility] - 06/21/2022 9:00 AM EST FASTING:YES FASTING: YES Nguyễn Gurrola MD LAB BLOOD ORDERABL ES Final Result [facility] [address] [facility], [place] [address] [facility] [address] [facility], ([address]) [place] [address] * HPV mRNA E6/E7 w/Reflex to HPV Genotypes 16, 18/45 (05/23/2022 4:26 PM EST) HPV nRNA E6/E7 Not Detected Not Detected [facility] Comment:Methodology: Transcr iption-Mediated AmplificationThis assay detects E6/E7 viral messenger RNA (mRNA) from 14high-risk HPV types (16,18,31,33,35,39,45,51,52,56,58,59,66,68).Cervical sources are required for HPV testing.If a vaginal source from a patient who has had atotal hysterectomy with removal of cervix wassubmitted, please contact the testing laboratoryfor alternative testing options.For additional information, please refer tohttp://education.[employer]/faq/AHL009n7(This link if provided for information/educational purposes only.)THIS TEST WAS PERFORMED AT:[facility] [place] [address] (NL1)[place] [address]SXJAFLILLIAN SINGH MD HPV mRNA E6/E7 [facility] HPV 16 RNA [facility] HPV 18/45 RNA [facility] 05/23/2022 4:26 PM EST 05/24/2022 9:45 AM EST us [facility] External Provider LAB CYT OLOGY ORDERABLES Final Result [facility] [address] [place] [address] [phone] * Pap Smear (05/23/2022 4:26 PM EST) 05/23/2022 4:26 PM EST 05/24/2022 9:45 AM EST Narrative [facility] - 06/03/2022 11:52 AM EST ----- ------- Name: Mercedez Nava Age/Sex: 51/F : 1970 Unit#: [id number] Attend Dr: Douglas Ellison MD Re05/23/22 Status: [facility] REF Location: [facility] Disch: ----- ------- SPEC : [id number] RECD: 05/24/22 STATUS: LUIS MIGUEL BLACKMAN NUM: [id number] MUMTAZ: 05/23/22 [facility] DR: Douglas Ellison MD ENTERED: 05/24/22 SP TYPE: Pap Smr OTHR DR: Nguyễn Ignacio MD ORDERED: Pap Smear Interpretation Satisfactory for evaluation. No endocervical cells seen. Negative for intraepithelial lesion or malignancy. HPV mRNA E6/E7: NOT DETECTED This assay detects E6/E7 viral messenger RNA (mRNA) from 14 high-risk HPV types (16, 18, 31, 33, 35, 39, 45, 51, 52, 56, 58, 59, 66, 68) HPV testing performed by [facility], [place], [place]. See reference laboratory portion of the EMR for entire report. Clinical Information LMP: No menses Previous PAP test: 12/02/20, Abnormal Other history: Ascus Material Received ThinPrep-Cervical Copies To: Nguyễn Ignacio MD [address] [place] [address] [phone] Douglas Ellison MD [address] [place] [address] Dr. [address] [phone] ----- ------- Signed (signature on file) Enma Jackson 06/03/22 1152 ----- ------- END OF REPORT [facility] External Provider LAB [facility] ORDERABLES Final Result [facility] [address] [place] [phone] [phone] * Hm Colonoscopy (01/05/2022) Historical Provider HEALTH MAINTENANCE Final Result from Last 3 Months or Most Recently Relevant to Health Maintenance Insurance [facility] C[facility] * Guarantor: Mercedez Nava Account Type Relation to Patient Date of Phone Billing Address Personal/Family Self [address] Care Teams Sledger Relationship Specialty Start Date End Date MayNguyễn Price MD [address] [place] [address] [address] [phone] PCP - General Internal Medicine 10/02/19
[2025-02-20 09:12] LABS: Alanine Aminotransferase 16 U/L (0-31); Albumin Level 4.1 g/dL (3.5-5.0); Alkaline Phosphatase 99 U/L (39-117); Anion Gap 10 (12-20); Aspartate Amino Transferase 20 U/L (5-31); Blood Urea Nitrogen 16 mg/dL (9-16); Calcium 9.2 mg/dL (8.4-10.2); Carbon Dioxide 25 mmol/L (22-29); Chloride 111 mmol/L (96-108); Cholesterol 174 mg/dL (<200); Estimated Glomerular Filt Rate 55; HDL Cholesterol 45 mg/dL (>40); Potassium 4.0 mmol/L (3.3-5.1); Sodium 142 mmol/L (135-145); Total Protein 7.4 g/dL (6.5-8.0); Triglycerides 89 mg/dL (<150)
== END 2025-02-20 07:54 | disposition home or self-care (01) ==
LOC: HO.LAB 07:53
PROVIDERS: PCP Internal Medicine; Visit Provider Internal Medicine
DX: E03.9 Hypothyroidism, unspecified (principal)
CPT/HCPCS: 36415; 80053; 80061; 84443